=== PATIENT | female | born 1970 | race Caucasian/White ===

== ENCOUNTER 2017-01-18 05:30 | Inpatient (IN) | payer MEDICAID ==
[2017-01-18] MEDS ORDERED: Acetaminophen 500 MG Tab PO ONE (06:00)
[2017-01-18] MEDS ORDERED: Ropivacaine 60 ML, Dexamethasone 8 MG, EPINEPHrine 0.4 MG, Sodium Chloride 0.9% 17.6 ML NERVRT SCH ×4 (06:00)
[2017-01-18] MEDS ORDERED: cefOXitin 2 GM in Sodium Chloride 0.9% 50 ML IV ONE (06:00)
[2017-01-18] MEDS ORDERED: Celecoxib 200 MG Cap PO ONE (06:00)
[2017-01-18] MEDS ORDERED: Ketamine 500 MG/5 ML MDV IV SCH (06:00)
[2017-01-18] MEDS ORDERED: Pregabalin 50 MG Cap PO ONE (06:00)
[2017-01-18] MEDS ORDERED: Scopolamine 1.5 MG Transdermal Patch TOP SCH (06:00)
[2017-01-18] MEDS ORDERED: Lidocaine 2% 100 MG/5 ML Syringe IVPUSH ONE (06:00)
[2017-01-18] MEDS ORDERED: Dextrose 5%-Lactated Ringers 1,000 ML IV SCH ×2 (06:00→12:30)
[2017-01-18] MEDS ORDERED: cefOXitin 2 GM Vial ONE (06:49)
[2017-01-18] MEDS ORDERED: Dexamethasone 4 MG/ML SDV ONE (07:13)
[2017-01-18] MEDS ORDERED: Lactated Ringers 1,000 ML ONE ×3 (07:13→09:08)
[2017-01-18] MEDS ORDERED: Neostigmine Methylsulfate 1 MG/ML 5 ML Syringe ONE (07:13)
[2017-01-18] MEDS ORDERED: Rocuronium 50 MG/5 ML Vial ONE (07:13)
[2017-01-18] MEDS ORDERED: Ondansetron 4 MG/2 ML SDV ONE (07:13)
[2017-01-18] MEDS ORDERED: Succinylcholine/Normal Saline 200 MG/10 ML Syringe ONE (07:13)
[2017-01-18] MEDS ORDERED: Propofol 200 MG/20 ML SDV ONE (07:13)
[2017-01-18] MEDS ORDERED: Midazolam 1 MG/ML 2 ML SDV ONE (07:14)
[2017-01-18] MEDS ORDERED: fentaNYL 250 MCG/5 ML SDV ONE (07:14)
[2017-01-18] MEDS ORDERED: HYDROmorphone 1 MG/ML Syringe IVPUSH ONE (09:42)
[2017-01-18] MEDS ORDERED: hydrOXYzine HCl 50 MG/ML SDV IM ONE (10:06)
[2017-01-18] MEDS: Lidocaine 0.4%/D5W 2 GM/500 ML BAG IV SCH ×2 (11:14→23:23)
[2017-01-18] MEDS ORDERED: Pantoprazole 40 MG Vial IVPUSH SCH (12:00)
[2017-01-18] MEDS ORDERED: SCOPOLAMINE PATCH ASK TOP SCH (12:20)
[2017-01-18] MEDS ORDERED: hydrOXYzine HCl 50 MG/ML SDV IM PRN (12:20)
[2017-01-18] MEDS ORDERED: Labetalol 20 MG/4 ML Syringe IVPUSH PRN (12:20)
[2017-01-18] MEDS ORDERED: Ondansetron 4 MG/2 ML SDV IVPUSH PRN (12:20)
[2017-01-18] MEDS ORDERED: Metoclopramide 10 MG/2 ML SDV IVPUSH PRN (12:26)
[2017-01-18] MEDS ORDERED: diphenhydrAMINE 50 MG/ML SDV IVPUSH PRN (12:27)
[2017-01-18] MEDS: HYDROmorphone 1 MG/ML Syringe IVPUSH PRN ×2 (12:58→19:24)
[2017-01-18] MEDS: cefOXitin 2 GM in Sodium Chloride 0.9% 50 ML IV SCH ×2 (13:04→18:16)
[2017-01-18] MEDS: Acetaminophen Soln 650 MG/20.3 ML UD Cup PO SCH ×3 (13:04→23:25)
[2017-01-18] MEDS: Gabapentin 250 MG/5 ML Solution ML 470 ML Bottle PO SCH ×2 (14:00→20:42)
[2017-01-18] MEDS ORDERED: MVI, Adult with Vitamin K 10 ML, Thiamine 200 MG, Chromium/Copper/Mang/Selen/Zn 1 ML in... IV SCH ×4 (16:00)
[2017-01-18] MEDS: Heparin Sodium 5,000 Units/ML Vial SUBCUT SCH ×2 (16:59→23:26)
[2017-01-19] MEDS ORDERED: Ondansetron 4 MG Tab.DIS PO PRN (00:08)
[2017-01-19] MEDS: traMADol 50 MG Tab PO PRN ×3 (00:18→16:57)
[2017-01-19] MEDS: cefOXitin 2 GM in Sodium Chloride 0.9% 50 ML IV SCH ×2 (01:15→07:44)
[2017-01-19] MEDS: Acetaminophen Soln 650 MG/20.3 ML UD Cup PO SCH ×4 (05:21→23:48)
[2017-01-19] MEDS: Celecoxib 200 MG Cap PO SCH (08:56)
[2017-01-19] MEDS: Pregabalin 50 MG Cap PO SCH ×2 (08:56→20:59)
[2017-01-19] MEDS: Chlorthalidone 25 MG Tab PO SCH (08:56)
[2017-01-19] MEDS: Heparin Sodium 5,000 Units/ML Vial SUBCUT SCH ×3 (08:56→23:48)
[2017-01-19] MEDS: SCOPOLAMINE PATCH CHECK TOP SCH (08:57)
[2017-01-19] MEDS: VERIFY SCOP PATCH TOP SCH (08:57)
[2017-01-19] MEDS ORDERED: Topiramate 100 MG Tab PO SCH (09:00)
[2017-01-19] MEDS ORDERED: Levothyroxine 25 MCG Tab PO SCH (09:00)
[2017-01-19] MEDS: ZONISAMIDE 100 MG PO SCH ×2 (11:33→20:52)
[2017-01-19] MEDS: Topiramate 25 MG Tab PO SCH (11:34)
[2017-01-19] MEDS: DULoxetine 30 MG Cap PO SCH (11:34)
[2017-01-19] MEDS: Levothyroxine 75 MCG Tab PO SCH (11:34)
[2017-01-19] MEDS ORDERED: Topiramate 25 MG Tab PO SCH (21:00)
[2017-01-19] MEDS ORDERED: DULoxetine 30 MG Cap PO SCH (21:00)
[2017-01-20] MEDS: Acetaminophen Soln 650 MG/20.3 ML UD Cup PO SCH (05:38)
[2017-01-20 07:08] VITALS: BP 150/83
[2017-01-20] MEDS: traMADol 50 MG Tab PO PRN (07:17)
[2017-01-20] MEDS: Levothyroxine 75 MCG Tab PO SCH (07:18)
[2017-01-20] MEDS ORDERED: Cyanocobalamin (Vitamin B12) 1,000 MCG/ML SDV IM ONE (09:00)
[2017-01-20] MEDS: Heparin Sodium 5,000 Units/ML Vial SUBCUT SCH (10:29)
[2017-01-20] MEDS: Celecoxib 200 MG Cap PO SCH (10:30)
[2017-01-20] MEDS: DULoxetine 30 MG Cap PO SCH (10:30)
[2017-01-20] MEDS: Chlorthalidone 25 MG Tab PO SCH (10:30)
[2017-01-20] MEDS: SCOPOLAMINE PATCH CHECK TOP SCH (10:30)
[2017-01-20] MEDS: ZONISAMIDE 100 MG PO SCH (10:31)
[2017-01-20] MEDS: VERIFY SCOP PATCH TOP SCH (10:31)
[2017-01-20] MEDS: Topiramate 25 MG Tab PO SCH (10:31)
[2017-01-20] MEDS ORDERED: Magnesium Hydroxide 400 MG/5 ML Susp 30 ML Cup PO ONE (10:40)
[2017-01-20] MEDS: Pregabalin 50 MG Cap PO SCH (10:48)
--- NOTE | 2017-01-20 16:17 | PN ---
DATE OF SERVICE: 01/19/2017 The patient is postop day 1 from a laparoscopic gastric bypass along with repair of diaphragmatic hernia. Clinically, she has done well overnight and tolerating liquids. We will switch her over to oral pain medication and switch over to her usual oral medications today. Go up to a step-2 diet and maximize activity. Work with pulmonary toilet. Gordon Lucia MD /[id number]
--- NOTE | 2017-01-21 09:29 | CR ---
UGI wo KUB HISTORY: Gastric bypass COMPARISON: None FINDINGS: No obstruction or extravasation of contrast. Surgical drain adjacent to the gastric remnan t. No acute findings.
--- NOTE | 2017-01-21 14:35 | DISCH ---
FINAL DIAGNOSES: 1. Morbid obesity. 2. Marked hepatomegaly. 3. Paraesophageal diaphragmatic hernia. 4. Obstructive sleep apnea. 5. Chronic pain syndrome. 6. Treated hypothyroidism. 7. Hypertension. 8. Depression and anxiety. OPERATIVE PROCEDURE: This was done on 01/18/17 via laparoscopic Anthony-en-Y gastric bypass with long limb gastroenterostomy, Raj-Cut needle liver biopsy, and repair of paraesophageal diaphragmatic hernia. HOSPITAL COURSE: This is a 46-year-old female presenting with longstanding morbid obesity. After preoperative evaluation and discussion, she wished to proceed with a gastric bypass. This was done on the date of admission. The patient had a liver biopsy as well and repair of paraesophageal diaphragmatic hernia. Our intention was to remove the gallbladder as well, but that appeared to be quite unsafe at this juncture, as the degree of hepatomegaly more or less engulfed the area of the gallbladder neck, making visualization of the area around the gallbladder neck/cystic duct junction very difficult to visualize, and it was felt better to leave the gallbladder in place, knowing that we could take it out in 6 months or 12 months, and at that time, the liver would be much smaller and the procedure, at that point, much safer. Postoperatively, otherwise, the patient has done well. She will be discharged to home, taking only Tylenol and Celebrex, and will be on a liquid diet until the first appointment, which will be with Mely Moore on 01/28/17.
--- NOTE | 2017-01-23 09:34 | OR ---
DATE OF PROCEDURE: 01/18/2017 PREOPERATIVE DIAGNOSES: 1. Morbid obesity. 2. Chronic cholecystitis and cholelithiasis. POSTOPERATIVE DIAGNOSES: 1. Morbid obesity. 2. Marked hepatomegaly. 3. Paraesophageal diaphragmatic hernia. 4. Chronic cholecystitis and cholelithiasis with encasement of the gallbladder neck and cystohepatic triangle by the enlarged liver. OPERATIVE PROCEDURES: Diagnostic laparoscopy with: 1. Laparoscopic Anthony-en-Y gastric bypass with long limb gastroenterostomy (56666). 2. Raj-Cut needle liver biopsy (14240). 3. Repair of paraesophageal diaphragmatic hernia (20187). ANESTHESIA: General. GENERAL EDUCATION INSTRUCTOR: Mely Moore PA-C. INDICATION FOR PROCEDURE: This is a 46-year-old presenting with longstanding morbid obesity and increasingly significant comorbidities. After preoperative evaluation and discussion, she wished to proceed with a gastric bypass procedure. Potential risks including bleeding, infection, leaks from various GI tract closures, problems with bowel obstruction over time, as well as possibility of cardiopulmonary, septic, or hemorrhagic complications leading to were discussed, and the patient wishes to proceed. The patient initially had some gallstones seen on imaging and has some attacks occasionally of suggestive of biliary colic, and a cholecystectomy would be planned as well. Potential risks including bleeding, infection, injury to common bile duct, possible migration of stones into the common bile duct requiring additional procedures for correction were reviewed, and the patient wishes to proceed. She was also made aware that occasionally the liver, in these cases, is such that this becomes a high risk procedure, and depending on the appearance of gallbladder, may lead us to leave the gallbladder in place today and re- approach this issue after she has lost some weight with the liver then decreasing in size by that time. DETAILS OF PROCEDURE: The patient was taken to the operating room and placed in a supine position. After general endotracheal anesthesia was induced, she was converted to a lithotomy position, and the abdomen was prepped and draped. Bilateral transversus abdominis plane blocks were then placed, using 40 mL of saline containing ropivacaine, dexamethasone, and epinephrine. These subcostal blocks were placed under continuous ultrasound monitoring, and adequate disbursement of the fluid was seen by ultrasound in the transversus abdominis plane. At this point, the gastrointestinal balloon catheter was then placed, and the abdomen prepped and draped. At 15 cm inferior and 5 cm left of xiphoid process, transverse incision was made and the peritoneal cavity entered under direct vision with an Optiview trocar and inflated to 15 mmHg pressure with CO2. Laparoscope was then reinserted. No underlying trocar insertion site injuries were seen. Following this, 5 additional trocars were placed across the upper and mid abdomen, and general exploration was undertaken. The patient was noted to have a quite striking hepatomegaly. There were multiple bile duct hamartomas present, but these were not felt necessary to be biopsied. Raj-Cut needle liver biopsy was obtained to establish the condition of the left lobe of liver, and minimal bleeding from the biopsy site was controlled with electrocautery. At this point, the omentum was divided in the midline up to the level of the transverse colon. This allowed identification of the small bowel to the ligament of Treitz. Small bowel was then traced out 200 cm distal to that point, which was divided transversely with PHILIPPE stapler. Small bowel was then traced out an additional 200 cm, where the [id number] enteroenterostomy was accomplished with internal firing of the Endo-PHILIPPE 60 mm stapler. The common opening was then closed transversely with the same stapler, angles anastomosed, and the mesenteric defect approximated with some 0 Ethibond stitch, along with fibrin sealant. The divided end of Anthony limb was then from the mesentery for a few centimeters, which allowed an antecolic position of the Anthony limb up to the level of the gastroesophageal junction without tension. The liver was then retracted anteriorly. The patient was noted to have significant paraesophageal hernia. This was reduced, and photodocumentation had been obtained. The peritoneum to the right and then anterior and then to the left of the diaphragmatic hernia was then dissected free and a retroesophageal window constructed. A combined posterior and anterior repair of the diaphragmatic hernia was accomplished with 0 Ethibond sutures reinforced with PTFE pledgets. At this point, the gastrointestinal balloon catheter was then inflated to 15 mL and and pulled up snugly against the EG junction. Gastric wall over the apex balloon was then marked with electrocautery and balloon catheter deflated and pulled up into the esophagus. The lesser omental tissue adjacent to the gastric cardia was then opened, and this allowed initial formation of the gastric pouch with transverse firing of the PHILIPPE stapler at the level of the cauterized parviz in the gastric cardia. Two additional firings of the PHILIPPE stapler up to and through the angle of His were then accomplished. At that point, both staple lines appeared to be intact. The anvil of a 21 mm EEA stapler was attached to [place] sump type tube. The latter was brought down through the mouth and taken out through a small opening in the gastric pouch, allowing the anvil likewise to be pulled down to within the gastric pouch. The divided end of Anthony limb was then opened with main body of the EEA stapler and passed several centimeters in the lumen of small bowel, brought up the anvil and united with it, thus creating the gastrojejunostomy. Upon removal of stapler, double donuts of mucosa were noted within it. The gastrojejunostomy was reinforced with 3-0 Vicryl seromuscular stitch, along with fibrin sealant. A leak test was then accomplished with injection of 120 mL of air in the gastric pouch, while submerged with cefoxitin-containing saline solution. No leaks were identified. Attention was then taken to the cholecystectomy. The original epigastric trocar was redirected to the right of the falciform ligament, and one additional 5 mm trocar placed in the right upper quadrant. As one attempted to visualize the gallbladder, it became evident that this gallbladder was only mildly diseased at this point, and the gallbladder neck and cystohepatic triangle were very difficult to visualize, due to engulfment or encasement by the enlarged liver. A judgment at this point was made to leave the gallbladder in at this point and readdress this at a later time, when the liver has decreased in size, making the cholecystectomy, if necessary at that point, a safer undertaking. A Stephen-Franz drain was then placed adjacent to gastrojejunostomy. The remaining trocars were then removed and peritoneal cavity deflated. The incisions were closed with some 5-0 Vicryl skin stitch and drain stitched with some 4-0 Vicryl stitch. The patient was taken to the recovery room in satisfactory condition. There were no evident complications. Physician topographical field assistant, Mely Moore, played an essential role in assisting in this case, helping to position the patient, and retract structures as needed, as well as suturing and cutting sutures when indicated. Her presence improved patient safety and decreased the operative time. Gordon Lucia MD /[id number]
== END 2017-01-20 11:00 | disposition home or self-care (01) | DRG 620 ==
LOC: JP.SDS 05:30 → JP.MS 05:30 → EDSTATUS 08:15 → JP.2SS 10:45
PROVIDERS: ADMIT Surgery; ATTEND Surgery
PROC: 0BQS4ZZ (ICD-10-PCS; principal; 2017-01-18)
PROC: 0FB24ZX Excision of Left Lobe Liver, Percutaneous Endoscopic Approach, Diagnostic (ICD-10-PCS; principal; 2017-01-18)
PROC: 3E0T3BZ Introduction of Anesthetic Agent into Peripheral Nerves and Plexi, Percutaneous Approach (ICD-10-PCS; principal; 2017-01-18)
PROC: 0BQR4ZZ (ICD-10-PCS; principal; 2017-01-18)
PROC: 0D164ZA Bypass Stomach to Jejunum, Percutaneous Endoscopic Approach (ICD-10-PCS; principal; 2017-01-18)
DX: E66.01 Morbid (severe) obesity due to excess calories (principal); K80.10 Calculus of gallbladder with chronic cholecystitis without obstruction; Z68.45 Body mass index [BMI] 70 or greater, adult; K44.9 Diaphragmatic hernia without obstruction or gangrene; R16.0 Hepatomegaly, not elsewhere classified; G47.33 Obstructive sleep apnea (adult) (pediatric); F32.9 Major depressive disorder, single episode, unspecified; E03.9 Hypothyroidism, unspecified; G89.4 Chronic pain syndrome; I10 Essential (primary) hypertension; F41.1 Generalized anxiety disorder; M79.7 Fibromyalgia; E78.5 Hyperlipidemia, unspecified; K21.9 Gastro-esophageal reflux disease without esophagitis; E55.9 Vitamin D deficiency, unspecified; M19.90 Unspecified osteoarthritis, unspecified site; R51 Headache; Z87.891 Personal history of nicotine dependence; Z91.048 Other nonmedicinal substance allergy status; Z53.09 Procedure and treatment not carried out because of other contraindication; K82.8 Other specified diseases of gallbladder
CPT/HCPCS: 36415; 74240; 74240-26; 82962; 86850; 86900; 86901; 88307; 88313; A9270-GY; C9113; J0171; J0694; J1100; J1170; J1644; J2001; J2250; J2405; J2704; J2795; J3010; J3410; J3411; J3420; J7030; J7040; J7042; J7050; J7120

== ENCOUNTER 2017-04-12 07:57 | Day surgery (SDC) | payer MEDICAID ==
[2017-04-12] MEDS ORDERED: Lactated Ringers 1,000 ML IV SCH (08:30)
[2017-04-12] MEDS ORDERED: Cyanocobalamin (Vitamin B12) 1,000 MCG/ML SDV IM ONE (09:00)
[2017-04-12] MEDS ORDERED: Glycopyrrolate 0.2 MG/ML 2 ML SYRINGE IVPUSH ONE (09:00)
[2017-04-12] MEDS ORDERED: MVI, Adult with Vitamin K 10 ML, Thiamine 200 MG, Chromium/Copper/Mang/Selen/Zn 1 ML in... IV ONE ×4 (10:30)
[2017-04-12] MEDS ORDERED: Midazolam 1 MG/ML 2 ML SDV ONE (14:47)
[2017-04-12] MEDS ORDERED: fentaNYL 100 MCG/2 ML SDV ONE (14:47)
[2017-04-12] MEDS ORDERED: Propofol 200 MG/20 ML SDV ONE (14:47)
[2017-04-12] MEDS ORDERED: Ondansetron 4 MG/2 ML SDV ONE (15:09)
[2017-04-12] MEDS ORDERED: Ondansetron 4 MG/2 ML SDV IVPUSH ONE ×2 (15:11→15:15)
[2017-04-12] MEDS ORDERED: Lactated Ringers 1,000 ML ONE (15:28)
[2017-04-12 15:56] VITALS: BP 147/87
--- NOTE | 2017-04-17 12:47 | OR ---
DATE OF PROCEDURE: 04/12/2017 PREOPERATIVE DIAGNOSIS: Probable stricture of gastrojejunostomy. POSTOPERATIVE DIAGNOSIS: Mild stricture of gastrojejunostomy. OPERATIVE PROCEDURE: Upper GI endoscopy with dilation gastrojejunostomy (01235). ANESTHESIA: IV sedation. INDICATION FOR PROCEDURE: The patient is status post Anthony-en-Y gastric bypass on January 18, 2017. She presents now with symptoms suggestive of stricturing at her gastrojejunostomy. Plan is to proceed with upper GI endoscopy with dilation as indicated. Potential risks including bleeding and perforation were discussed, and the patient wishes to proceed. DETAILS OF PROCEDURE: The patient was taken to the operating room and placed in a left lateral decubitus position. IV sedation was administered, after which the upper GI endoscope was passed orally through the length of the esophagus and into the gastric pouch. The patient noted to have a mild stricture noted. A 9 mm scope could be placed through the anastomosis. There was no ulceration or significant inflammation present and the visualized portion of the Anthony-en-Y was unremarkable. Two large somewhat 45-Yoruba balloon catheters inflated over the anastomosis and now held in position for 1 minute. The balloon catheter was deflated and withdrawn. The anastomosis was examined. Significant dilation had occurred and there was no evident of complications. The scope was withdrawn. The procedure was concluded. The patient was taken to the recovery room in satisfactory condition. Gordon Lucia MD /[id number]
== END 2017-04-12 16:01 | disposition home or self-care (01) ==
LOC: JP.SDS 07:57
PROVIDERS: ATTEND Surgery
DX: K95.89 Other complications of other bariatric procedure (principal); I10 Essential (primary) hypertension; K21.9 Gastro-esophageal reflux disease without esophagitis; F32.9 Major depressive disorder, single episode, unspecified; E66.9 Obesity, unspecified; E03.9 Hypothyroidism, unspecified
CPT/HCPCS: 43245; J2250; J2405; J2704; J3010; J3411; J3420; J7120

== ENCOUNTER 2017-05-23 12:26 | Inpatient (IN) | payer MEDICAID ==
--- NOTE | 2017-05-23 14:33 | EDM.PDOC ---
ED HPI GENERAL MEDICAL PROBLEM - General Chief Complaint: Abdominal Pain Stated Complaint: RNY SURGERY 01/18 STOMACH PAIN Time Seen by Provider: 05/23/17 13:00 Source of Information: Reports: Patient, Family History Limitations: Reports: No Limitations - History of Present Illness INITIAL COMMENTS - FREE TEXT/NARRATIVE: 46-year-old female with recurring right upper quadrant abdominal pain and known "gallbladder problems" has been having problems over the last couple days and was told by the surgical department to come and have her gallbladder checked. She had gastric bypass surgery earlier this year and they were unable to perform her cholecystectomy at that time because of concurrent surgical issues. She has no fever or chills, no persistent nausea or vomiting, mostly just right upper quadrant pain and epigastric pain radiating to the right flank. Onset: Gradual (Off-and-on over the past several weeks worse the last 24-48 hours) Location: Reports: Abdomen Severity: Moderate Worsens with: Reports: Other (Seems to be somewhat worse after eating) Associated Symptoms: Denies: Fever/Chills Abdominal Pain Score (Numeric/FACES): 8 - Related Data Allergies Allergy/AdvReac Type Severity Reaction Status Date / Time No Known Allergies Allergy Verified 01/18/17 06:16 Home Meds: Home Meds Chlorthalidone 50 mg PO DAILY 01/17/17 [History] Cholecalciferol (Vitamin D3) [Vitamin D3] 2,000 units PO DAILY 01/17/17 [History ] Levothyroxine Sodium [Synthroid] 75 mcg PO DAILY 01/17/17 [History] Loperamide [Imodium] 2 mg PO QID PRN 01/17/17 [History] Multivit with Min #53/FA/K/Q10 [Dekas Plus Softgel] 1 tab PO DAILY 01/17/17 [ History] Omeprazole Magnesium [Prilosec] 20 mg PO DAILY PRN 01/17/17 [History] Ondansetron [Zofran ODT] 8 mg PO TIDAC PRN 01/17/17 [History] Pregabalin [Lyrica] 50 mg PO BID 01/17/17 [History] Topiramate [Topamax] 50 mg PO DAILY 01/17/17 [History] Zonisamide [Zonegran] 100 mg PO BID 01/17/17 [History] buPROPion [Wellbutrin XL] 150 mg PO DAILY 01/17/17 [History] DULoxetine HCl [Cymbalta] 30 mg PO BEDTIME 01/19/17 [History] DULoxetine HCl [Cymbalta] 60 mg PO DAILY 01/19/17 [History] Topiramate 75 mg PO BEDTIME 01/19/17 [History] Past Medical History HEENT History: Reports: Impaired Vision Cardiovascular History: Reports: Hypertension Respiratory History: Reports: Sleep Apnea Other Respiratory History: has not been using any cpap post op Gastrointestinal History: Reports: Cholelithiasis, Chronic Constipation, Chronic Diarrhea, Colon Polyp, GERD, Irritable Bowel Syndrome Genitourinary History: Reports: None BACKGROUND INVESTIGATOR History: Reports: Dysfunctional Uterine Bleeding, Musculoskeletal History: Reports: Arthritis, Fibromyalgia, Osteoarthritis Neurological History: Reports: Headaches, Chronic, Migraines Psychiatric History: Reports: Anxiety, Depression, OCD, Panic Attack, PTSD Endocrine/Metabolic History: Reports: Hypothyroidism, Obesity/BMI 30+ Hematologic History: Reports: B12 Deficiency - Infectious Disease History Infectious Disease History: Reports: Chicken Pox, Shingles - Past Surgical History Cardiovascular Surgical History: Reports: None GI Surgical History: Reports: Bariatric Procedure, Colon, EGD, Polypectomy Female Surgical History: Reports: Section, Hysterectomy Endocrine Surgical History: Reports: None Musculoskeletal Surgical History: Reports: Carpal Tunnel Social & Family History - Family History Family Medical History: Noncontributory - Tobacco Use Smoking Status *Q: Never Smoker Years of Tobacco use: 30 Packs/Tins Daily: 1 Used Tobacco, but Quit: Yes Month Tobacco Last Used: September Second Hand Smoke Exposure: No - Caffeine Use Caffeine Use: Reports: None - Recreational Drug Use Recreational Drug Use: No ED ROS GENERAL - Review of Systems Review Of Systems: See Below Constitutional: Denies: Fever, Chills HEENT: Reports: No Symptoms Respiratory: Denies: Shortness of Breath, Cough Cardiovascular: Denies: Chest Pain Endocrine: Denies: Fatigue GI/Abdominal: Reports: Abdominal Pain, Nausea. Denies: Diarrhea, Vomiting : Reports: No Symptoms Skin: Reports: No Symptoms Neurological: Reports: No Symptoms ED EXAM, GI/ABD - Physical Exam Exam: See Below Exam Limited By: No Limitations General Appearance: Alert, No Apparent Distress Eyes: Bilateral: Normal Appearance (No jaundice) Respiratory/Chest: No Respiratory Distress, Lungs Clear Cardiovascular: Regular Rate, Rhythm GI/Abdominal Exam: Soft, Tender (Tender with guarding along the upper right abdomen and epigastric area, no rebound tenderness) Course - Vital Signs Last Recorded V/S: Last Vital Signs Temp 97.5 F 05/24/17 04:00 Pulse 75 05/24/17 04:00 Resp 18 05/24/17 04:00 BP 124/68 05/24/17 04:00 Pulse Ox 94 L 05/24/17 04:00 - Orders/Labs/Meds Orders: Active Orders 24 hr Category Date Time Status Abdomen Ltd [US] Stat Exams 05/23/17 14:27 Taken Abdomen Pelvis wo Cont [CT] Stat Exams 05/23/17 15:47 Taken Medication Orders Acetaminophen (Tylenol) 650 mg PO Q4H PRN PRN Reason: Pain (Mild 1-3)/fever Bupropion HCl (Wellbutrin Xl) 150 mg PO DAILY [facility] Chlorthalidone (Chlorthalidone) 50 mg PO DAILY [facility] Duloxetine HCl (Cymbalta) 30 mg PO BEDTIME [facility] Last Admin: 05/23/17 21:18 Dose: 30 mg Duloxetine HCl (Cymbalta) 60 mg PO DAILY [facility] Hydromorphone HCl (Dilaudid) 0.5 - 1 mg IVPUSH Q2H PRN PRN Reason: Pain (severe 7-10) Last Admin: 05/24/17 01:10 Dose: 1 mg Admin: 05/23/17 20:16 Dose: 1 mg Dextrose/Lactated Ringer's (Dextrose 5%-Lactated Ringers) 1,000 mls @ 125 mls/ hr IV ASDIRECTED [facility] Last Admin: 05/23/17 23:26 Dose: 125 mls/hr Levothyroxine Sodium (Levothyroxine) 75 mcg PO DAILY [facility] Ondansetron HCl (Zofran Odt) 4 mg PO Q6H PRN PRN Reason: Nausea able to take PO Ondansetron HCl (Zofran) 4 mg IV Q6H PRN PRN Reason: Nausea/Vomiting Pantoprazole Sodium (Protonix Iv) 40 mg IV Q24H [facility] Last Admin: 05/23/17 20:16 Dose: 40 mg Polyethylene Glycol (Miralax) 17 gm PO DAILY PRN PRN Reason: Constipation Pregabalin (Lyrica) 50 mg PO BID [facility] Last Admin: 05/23/17 21:18 Dose: 50 mg Senna/Docusate Sodium (Senna Plus) 1 tab PO BID PRN PRN Reason: Constipation Topiramate (Topamax) 50 mg PO DAILY [facility] Topiramate (Topamax) 75 mg PO BEDTIME [facility] Last Admin: 05/23/17 21:19 Dose: 75 mg Zonisamide (Zonisamide) 100 mg PO BID [facility] Last Admin: 05/23/17 21:19 Dose: Not Given Labs: Laboratory Tests 05/23/17 05/23/17 Range/Units 14:05 14:05 WBC 9.4 (4.5-11.0) K/uL RBC 4.62 (3.30-5.50) M/uL Hgb 13.7 (12.0-15.0) g/dL Hct 41.3 (36.0-48.0) % MCV 89 (80-98) fL MCH 30 (27-31) pg MCHC 33 (32-36) % Plt Count 184 (150-400) K/uL Neut % (Auto) 60 (36-66) % Lymph % (Auto) 28 (24-44) % [place] % (Auto) 11 H (2-6) % Eos % (Auto) 2 (2-4) % Baso % (Auto) 1 (0-1) % Sodium 142 (140-148) mmol/L Potassium 4.0 (3.6-5.2) mmol/L Chloride 106 (100-108) mmol/L Carbon Dioxide 26 (21-32) mmol/L Anion Gap 10.1 (5.0-14.0) mmol/L BUN 7 (7-18) mg/dL Creatinine 0.7 (0.6-1.0) mg/dL Est Cr Clr Drug Dosing 75.78 mL/min Estimated GFR (MDRD) > 60 (>60) Glucose 83 (74-106) mg/dL Calcium 8.9 (8.5-10.1) mg/dL Total Bilirubin 0.7 (0.2-1.0) mg/dL AST 19 (15-37) U/L ALT 19 (12-78) U/L Alkaline Phosphatase 101 (46-116) U/L Total Protein 6.8 (6.4-8.2) g/dL Albumin 2.8 L (3.4-5.0) g/dL Globulin 4.0 H (2.3-3.5) g/dL Albumin/Globulin Ratio 0.7 L (1.2-2.2) Amylase 31 (25-115) U/L Lipase 484 H (73-393) U/L Meds: Medications Generic Name Dose Route Start Last Admin Trade Name Freq PRN Reason Stop Dose Admin Acetaminophen 650 mg 05/23/17 18:31 Tylenol PO Q4H PRN Pain (Mild 1-3)/fever Bupropion HCl 150 mg 05/24/17 09:00 Wellbutrin Xl PO DAILY [facility] Chlorthalidone 50 mg 05/24/17 09:00 Chlorthalidone PO DAILY [facility] Duloxetine HCl 30 mg 05/23/17 21:00 05/23/17 21:18 Cymbalta PO 30 mg BEDTIME [facility] Administration Duloxetine HCl 60 mg 05/24/17 09:00 Cymbalta PO DAILY [facility] Hydromorphone HCl 0.5 - 1 mg 05/23/17 18:31 05/24/17 01:10 Dilaudid IVPUSH 1 mg Q2H PRN Administration Pain (severe 7-10) Dextrose/Lactated Ringer's 1,000 mls @ 125 mls/hr 05/23/17 23:30 05/23/17 23: 26 Dextrose 5%-Lactated Ringers IV 125 mls/hr ASDIRECTED [facility] Administration Levothyroxine Sodium 75 mcg 05/24/17 09:00 Levothyroxine PO DAILY [facility] Ondansetron HCl 4 mg 05/23/17 18:31 Zofran Odt PO Q6H PRN Nausea able to take PO Ondansetron HCl 4 mg 05/23/17 18:31 Zofran IV Q6H PRN Nausea/Vomiting Pantoprazole Sodium 40 mg 05/23/17 19:00 05/23/17 20:16 Protonix Iv IV 40 mg Q24H [facility]O Administration Polyethylene Glycol 17 gm 05/23/17 18:31 Miralax PO DAILY PRN Constipation Pregabalin 50 mg 05/23/17 21:00 05/23/17 21:18 Lyrica PO 50 mg BID [facility]O Administration Senna/Docusate Sodium 1 tab 05/23/17 18:31 Senna Plus PO BID PRN Constipation Topiramate 50 mg 05/24/17 09:00 Topamax PO DAILY [facility] Topiramate 75 mg 05/23/17 21:00 05/23/17 21:19 Topamax PO 75 mg BEDTIME [facility] Administration Zonisamide 100 mg 05/23/17 21:00 05/23/17 21:19 Zonisamide PO Not Given BID RAO Discontinued Medications Generic Name Dose Route Start Last Admin Trade Name [place] PRN Reason Stop Dose Admin Sodium Chloride 89 mls @ 3 mls/sec 05/23/17 15:30 Normal Saline IV ASDIRECTED [facility] Multivitamins/Minerals 10 ml/ 1,013 mls @ 200 mls/hr 05/23/17 18:00 05/23/17 17:50 Chromium/Copper/Manganese/ IV 05/23/17 23:03 200 mls/hr Seleni/Zn 1 ml/ Thiamine HCl ONETIME ONE Administration 200 mg/ Dextrose/Lactated Ringer's Iopamidol 150 ml 05/23/17 15:29 Isovue-300 (61%) IV 05/24/17 15:30 . DIRECTED PRN RADIOLOGY EXAM Sodium Chloride 10 ml 05/23/17 15:29 05/23/17 17:30 Saline Flush FLUSH 05/23/17 15:30 10 ml ONETIME ONE Administration - Re-Assessments/Exams Free Text/Narrative Re-Assessment/Exam: 05/23/17 14:35 CBC, CMP, amylase and lipase were obtained. A right upper quadrant gallbladder ultrasound was obtained. 05/23/17 16:59 lipase is mildly elevated, white count was normal. Liver function studies were basically normal as well and the gallbladder ultrasound showed cholelithiasis with a borderline gallbladder size and borderline gallbladder wall thickness. CT scan confirmed pancreatitis around the head of the pancreas. This was discussed with Dr. Lucia, he asked the hospitalist service to admit her for treatment of acute pancreatitis and will likely get a cholecystectomy in the near future. Departure - Departure Time of Disposition: 18:22 Disposition: Admitted As Inpatient 66 Condition: Fair Clinical Impression: Abdominal pain Qualifiers: Abdominal location: upper abdomen, unspecified Qualified Code(s): R10.10 - Upper abdominal pain, unspecified Pancreatitis Qualifiers: Chronicity: acute Pancreatitis type: biliary Acute pancreatitis complication: no infection or necrosis Qualified Code(s): K85.10 - Biliary acute pancreatitis without necrosis or infection - Discharge Information - My Orders Last 24 Hours: My Active Orders 05/23/17 14:27 Abdomen Ltd [US] Stat 05/23/17 15:47 Abdomen Pelvis wo Cont [CT] Stat - Assessment/Plan Last 24 Hours: My Active Orders 05/23/17 14:27 Abdomen Ltd [US] Stat 05/23/17 15:47 Abdomen Pelvis wo Cont [CT] Stat
[2017-05-23] MEDS ORDERED: Sodium Chloride 0.9% 10 ML Syringe FLUSH ONE (15:29)
[2017-05-23] MEDS ORDERED: Iopamidol 612 MG/ML 150 ML Bottle IV PRN (15:29)
--- NOTE | 2017-05-23 17:37 | PCM.HP ---
H&P History of Present Illness - General Date of Service: 05/23/17 Admit Problem/Dx: Admission Diagnosis/Problem Admission Diagnosis/Problem Acute pancreatitis Source of Information: Patient, Provider History Limitations: Reports: No Limitations - History of Present Illness Initial Comments - Free Text/Narative: Dary presents to the emergency room today with epigastric abdominal pain that has been present for the past 24 hours. This is a sharp progressive pain that has gotten steadily worse. Moving around seems to make the pain worse and laying still makes the pain better. She has not taken anything for the pain. She has had very little to eat or drink in the past 24 hours. She has never had pain quite like this before. She thinks that she may have had a "gallbladder attack" in the past. No recent difficulties with fevers, chills, diarrhea or change in bladder habits. No complaints of shortness of breath. No sick contacts or vomiting but she has had some nausea. Laboratory workup in the emergency room was reassuring other than a mildly elevated lipase. A right upper quadrant ultrasound revealed order lying thickening of the gallbladder wall and cholelithiasis but no strong evidence for cholecystitis. CT scan of the abdomen and pelvis suggested acute pancreatitis with inflammation around the head of the pancreas. Abdominal Pain Score (Numeric/FACES): 8 - Related Data Allergies/Adverse Reactions: Allergies Allergy/AdvReac Type Severity Reaction Status Date / Time No Known Allergies Allergy Verified 01/18/17 06:16 Home Medications: Home Meds Chlorthalidone 50 mg PO DAILY 01/17/17 [History] Cholecalciferol (Vitamin D3) [Vitamin D3] 2,000 units PO DAILY 01/17/17 [History ] Levothyroxine Sodium [Synthroid] 75 mcg PO DAILY 01/17/17 [History] Loperamide [Imodium] 2 mg PO QID PRN 01/17/17 [History] Multivit with Min #53/FA/K/Q10 [Dekas Plus Softgel] 1 tab PO DAILY 01/17/17 [ History] Omeprazole Magnesium [Prilosec] 20 mg PO DAILY PRN 01/17/17 [History] Ondansetron [Zofran ODT] 8 mg PO TIDAC PRN 01/17/17 [History] Pregabalin [Lyrica] 50 mg PO BID 01/17/17 [History] Topiramate [Topamax] 50 mg PO DAILY 01/17/17 [History] Zonisamide [Zonegran] 100 mg PO BID 01/17/17 [History] buPROPion [Wellbutrin XL] 150 mg PO DAILY 01/17/17 [History] DULoxetine HCl [Cymbalta] 30 mg PO BEDTIME 01/19/17 [History] DULoxetine HCl [Cymbalta] 60 mg PO DAILY 01/19/17 [History] Topiramate 75 mg PO BEDTIME 01/19/17 [History] Past Medical History HEENT History: Reports: Impaired Vision Cardiovascular History: Reports: Hypertension Respiratory History: Reports: Sleep Apnea Other Respiratory History: has not been using any cpap post op Gastrointestinal History: Reports: Cholelithiasis, Chronic Constipation, Chronic Diarrhea, Colon Polyp, GERD, Irritable Bowel Syndrome Genitourinary History: Reports: None [employer] History: Reports: Dysfunctional Uterine Bleeding, Musculoskeletal History: Reports: Arthritis, Fibromyalgia, Osteoarthritis Neurological History: Reports: Headaches, Chronic, Migraines Psychiatric History: Reports: Anxiety, Depression, OCD, Panic Attack, PTSD Endocrine/Metabolic History: Reports: Hypothyroidism, Obesity/BMI 30+ Hematologic History: Reports: B12 Deficiency - Infectious Disease History Infectious Disease History: Reports: Chicken Pox, Shingles - Past Surgical History Cardiovascular Surgical History: Reports: None GI Surgical History: Reports: Bariatric Procedure, Colon, EGD, Polypectomy Female Surgical History: Reports: Section, Hysterectomy Endocrine Surgical History: Reports: None Musculoskeletal Surgical History: Reports: Carpal Tunnel Social & Family History - Family History Family Medical History: Noncontributory - Tobacco Use Smoking Status *Q: Never Smoker Years of Tobacco use: 30 Packs/Tins Daily: 1 Used Tobacco, but Quit: Yes Month Tobacco Last Used: September Second Hand Smoke Exposure: No - Caffeine Use Caffeine Use: Reports: None - Alcohol Use Alcohol Use History: No - Recreational Drug Use Recreational Drug Use: No H&P Review of Systems - Review of Systems: Review Of Systems: See Below Free Text/Narrative: A complete 12 point review of systems was obtained. Pertinent positives and negatives are noted in the history of present illness. All other systems were reviewed and were negative except as noted. Exam - Exam Exam: See Below - Vital Signs Vital Signs: Last Vital Signs Temp 37.4 C 05/23/17 13:21 Pulse 80 05/23/17 13:21 Resp 20 05/23/17 13:21 BP 129/80 05/23/17 13:21 Pulse Ox Weight: 136 kg - Exam Quality Assessment: No: Supplemental Oxygen General: Alert, Oriented, Cooperative. No: Mild Distress HEENT: Conjunctiva Clear. No: Mucosa Moist & Smyer (dry), Scleral Icterus Neck: Supple, Trachea Midline. No: Lymphadenopathy Lungs: Clear to Auscultation, Normal Respiratory Effort Cardiovascular: Regular Rate, Regular Rhythm. No: Systolic Murmur GI/Abdominal Exam: Soft, No Distention, Guarding, Tender (Mild diffuse tenderness and moderate epigastric tenderness). No: Abnormal Bowel Sounds ( Hypoactive) Extremities: Pedal Edema (Pitting bilateral edema of both ankles). No: Joint Swelling, Increased Warmth Peripheral Pulses: 2+: Dorsalis Pedis (L), Dorsalis Pedis (R) Skin: Warm, Dry. No: Rash Neuro Extensive - Mental Status: Alert, Oriented x3, Nl Response to Commands Neuro Extensive - Motor, Sensory, Reflexes: CN II-XII Intact. No: Dysarthria, Abnormal Motor, Tremor Psychiatric: Alert, Normal Affect - Patient Data Lab Results Last 24 hrs: Laboratory Results - last 24 hr 05/23/17 05/23/17 Range/Units 14:05 14:05 WBC 9.4 (4.5-11.0) K/uL RBC 4.62 (3.30-5.50) M/uL Hgb 13.7 (12.0-15.0) g/dL Hct 41.3 (36.0-48.0) % MCV 89 (80-98) fL MCH 30 (27-31) pg MCHC 33 (32-36) % Plt Count 184 (150-400) K/uL Neut % (Auto) 60 (36-66) % Lymph % (Auto) 28 (24-44) % [place] % (Auto) 11 H (2-6) % Eos % (Auto) 2 (2-4) % Baso % (Auto) 1 (0-1) % Sodium 142 (140-148) mmol/L Potassium 4.0 (3.6-5.2) mmol/L Chloride 106 (100-108) mmol/L Carbon Dioxide 26 (21-32) mmol/L Anion Gap 10.1 (5.0-14.0) mmol/L BUN 7 (7-18) mg/dL Creatinine 0.7 (0.6-1.0) mg/dL Est Cr Clr Drug Dosing 75.78 mL/min Estimated GFR (MDRD) > 60 (>60) Glucose 83 (74-106) mg/dL Calcium 8.9 (8.5-10.1) mg/dL Total Bilirubin 0.7 (0.2-1.0) mg/dL AST 19 (15-37) U/L ALT 19 (12-78) U/L Alkaline Phosphatase 101 (46-116) U/L Total Protein 6.8 (6.4-8.2) g/dL Albumin 2.8 L (3.4-5.0) g/dL Globulin 4.0 H (2.3-3.5) g/dL Albumin/Globulin Ratio 0.7 L (1.2-2.2) Amylase 31 (25-115) U/L Lipase 484 H (73-393) U/L Result Diagrams: 05/23/17 14:05 05/23/17 14:05 Imaging Impressions Last 24 hrs: Right upper quadrant ultrasound - cholelithiasis and borderline thickening of the gallbladder wall but no definite acute cholecystitis CT scan of the abdomen and pelvis - images personally reviewed - there is inflammation involving the head of the pancreas. No definite mass in the head of the pancreas. No impressive dilation of the biliary system. Cholelithiasis noted. No other acute findings. *Q Meaningful Use (ADM) - VTE *Q VTE Criteria *Q: VTE Pharmacological Contraindications *Q: Patient Scheduled Surgery (Possible cholecystectomy) - VTE Risk Assess *Q Each Risk Factor Represents 1 Point: Age 41 - 59 years, Minor Surgery Planned, Swollen Legs, Current Total Score 1 Point Risk Factors: 3 Each Risk Factor Represents 2 Points: None Total Score 2 Point Risk Factors: 0 Each Risk Factor Represents 3 Points: BMI Greater than 50 (Venous Stasis Syndrome) Total Score 3 Point Risk Factors: 3 Each Risk Factor Represents 5 Points: None Total Score 5 Point Risk Factors: 0 Venous Thromboembolism Risk Factor Score *Q: 6 - Stroke *Q Stroke Criteria *Q: - AMI *Q AMI Criteria *Q: - Problem List (1) Pancreatitis SNOMED Code(s): 39811007 ICD Code: K85.90 - ACUTE PANCREATITIS WITHOUT NECROSIS OR INFECTION, UNSP Status: Acute Current Visit: Yes Qualifiers: Chronicity: acute Pancreatitis type: biliary Acute pancreatitis complication: no infection or necrosis Qualified Code(s): K85.10 - Biliary acute pancreatitis without necrosis or infection (2) Cholelithiasis SNOMED Code(s): 882713195 ICD Code: K80.20 - CALCULUS OF GALLBLADDER W/O CHOLECYSTITIS W/O OBSTRUCTION Status: Acute Current Visit: Yes Qualifiers: Cholelithiasis location: gallbladder Cholecystitis presence: without cholecystitis Biliary obstruction: without biliary obstruction Qualified Code(s): K80.20 - Calculus of gallbladder without cholecystitis without obstruction (3) Morbid obesity with BMI of 50.0-59.9, adult SNOMED Code(s): 669488775 ICD Code: E66.01 - MORBID (SEVERE) OBESITY DUE TO EXCESS CALORIES; Z68.43 - BODY MASS INDEX (BMI) 50-59.9 , ADULT Status: Chronic Current Visit: Yes Problem List Initiated/Reviewed/Updated: Yes Orders Last 24hrs: Active Orders 24 hr Category Date Time Status Patient Status Manage Transfer [TRANSFER] Routine ADT 05/23/17 17:26 Ordered Abdomen Ltd [US] Stat Exams 05/23/17 14:27 Taken Abdomen Pelvis w Cont [CT] Stat Exams 05/23/17 15:16 Stop Req Abdomen Pelvis wo Cont [CT] Stat Exams 05/23/17 15:47 Taken Iopamidol [Isovue-300 (61%)] Med 05/23/17 15:29 Active 150 ml IV . DIRECTED PRN Sodium Chloride 0.9% [Normal Saline] 89 ml Med 05/23/17 15:30 Active IV ASDIRECTED Resuscitation Status Routine Resus Stat 05/23/17 17:29 Ordered Medication Orders Sodium Chloride (Normal Saline) 89 mls @ 3 mls/sec IV ASDIRECTED RAO Iopamidol (Isovue-300 (61%)) 150 ml IV . DIRECTED PRN PRN Reason: RADIOLOGY EXAM Stop: 05/24/17 15:30 Assessment/Plan Comment:: Assessment and plan - Acute pancreatitis - mild elevation of lipase but more impressive inflammation around the head of the pancreas on CT scan. Patient reports no alcohol use. She does have gallstones but labs are not consistent with cholelithiasis causing obstruction. Medications could be considered. No recent infections to suggest viral cause. -Nothing by mouth -IV fluids -Multivitamin bag -Pain control -Antinausea medications -Repeat lipase in the morning Cholelithiasis with possible cholecystitis - findings for cholecystitis are borderline at this time and not definitive. Presenting symptoms more consistent with pancreatitis. -Nothing by mouth -Labs in the morning -Surgical consultation Morbid obesity with BMI greater than 50 - history of Anthony-en-Y gastric bypass. -Multivitamin bag Fibromyalgia - symptoms are stable. -Continue home medications Maintenance issues - - DVT prophylaxis - mechanical - GI prophylaxis - IV PPI - Nutrition - nothing by mouth - Mckeon catheter - not indicated CODE STATUS - full code Admission justification - This patient will be admitted for inpatient services and is medically appropriate meeting medical necessity for inpatient admission as outlined in my documentation. I reasonably expect the patient will require inpatient services that span a period time over 2 midnights. I reasonably expect this patient to be discharged or transferred within 96 hours [facility] Disposition - anticipate discharge home after the hospital stay Primary care physician - Dr. Khari Rangel M.D.
[2017-05-23] MEDS ORDERED: MVI, Adult with Vitamin K 10 ML, Chromium/Copper/Mang/Selen/Zn 1 ML, Thiamine 200 MG in... IV ONE ×4 (18:00)
[2017-05-23] MEDS ORDERED: Ondansetron 4 MG/2 ML SDV IV PRN (18:31)
[2017-05-23] MEDS ORDERED: Polyethylene Glycol 3350 Powder 17 GM Packet PO PRN (18:31)
[2017-05-23] MEDS ORDERED: Ondansetron 4 MG Tab.DIS PO PRN (18:31)
[2017-05-23] MEDS ORDERED: Pantoprazole 40 MG Vial IV SCH (19:00)
[2017-05-23] MEDS: HYDROmorphone 0.5 MG/0.5 ML Syringe IVPUSH PRN (20:16)
[2017-05-23] MEDS: Pregabalin 50 MG Cap PO SCH (21:18)
[2017-05-23] MEDS: DULoxetine 30 MG Cap PO SCH (21:18)
[2017-05-23] MEDS: Zonisamide 50 MG Capsule PO SCH (21:19)
[2017-05-23] MEDS: Topiramate 25 MG Tab PO SCH (21:19)
[2017-05-23] MEDS ORDERED: Dextrose 5%-Lact Ringers w/KCl 1,000 ML IV SCH (23:15)
[2017-05-23] MEDS: Dextrose 5%-Lactated Ringers 1,000 ML IV SCH (23:26)
[2017-05-24] MEDS: HYDROmorphone 0.5 MG/0.5 ML Syringe IVPUSH PRN (01:10)
[2017-05-24] MEDS ORDERED: HYDROmorphone/Normal Saline 15 MG/30 ML PCA IV PRN (07:47)
[2017-05-24] MEDS ORDERED: Naloxone 0.4 MG/ML SDV IV PRN (07:47)
[2017-05-24] MEDS: Dextrose 5%-Lactated Ringers 1,000 ML IV SCH ×2 (08:10→23:32)
--- NOTE | 2017-05-24 08:51 | US ---
Abdomen Ltd HISTORY: Right upper quadrant pain. COMPARISON: None FINDINGS: Diffuse fatty infiltration of liver with no focal liver lesions seen. Gallbladder demonstra jun multiple small shadowing stones. Gallbladder wall measures 3 mm which is normal. Common bile duct measures 5 mm. Inferior vena cava is patent. Right kidney unremarkable. The visualized pancreas appe ars unremarkable. Impression: 1. Fatty infiltration of liver. 2. Cholelithiasis no sonographic evidence for cholecystitis.
[2017-05-24] MEDS ORDERED: Levothyroxine 75 MCG Tab PO SCH (09:00)
[2017-05-24] MEDS: Zonisamide 50 MG Capsule PO SCH ×2 (10:06→22:00)
[2017-05-24] MEDS: buPROPion 150 MG Tab.ER PO SCH (10:07)
[2017-05-24] MEDS: Topiramate 25 MG Tab PO SCH ×2 (10:07→21:56)
[2017-05-24] MEDS: Chlorthalidone 25 MG Tab PO SCH (10:07)
[2017-05-24] MEDS: DULoxetine 30 MG Cap PO SCH ×2 (10:07→21:55)
[2017-05-24] MEDS: Levothyroxine 75 MCG Tab PO SCH (10:07)
[2017-05-24] MEDS: Magnesium Sulfate/Water 2 GM in Premix Bag 1 BAG IV SCH ×3 (10:08→23:33)
[2017-05-24] MEDS: Pregabalin 50 MG Cap PO SCH ×2 (10:22→22:00)
[2017-05-24] MEDS: Potassium Phosphates 22.5 MMOLE in Sodium Chloride 0.9% 250 ML IV SCH ×2 (12:41→19:14)
[2017-05-24] MEDS: Acetaminophen 325 MG Tab PO PRN (16:18)
[2017-05-24] MEDS: Pantoprazole 40 MG Vial IV SCH (16:39)
[2017-05-25] MEDS: Magnesium Sulfate/Water 2 GM in Premix Bag 1 BAG IV SCH ×4 (03:37→21:42)
[2017-05-25] MEDS ORDERED: Bupivacaine 0.5%/EPINEPHrine 1:200,000 50 ML MDV ONE (07:44)
[2017-05-25] MEDS ORDERED: Midazolam 1 MG/ML 2 ML SDV ONE (07:53)
[2017-05-25] MEDS ORDERED: fentaNYL 100 MCG/2 ML SDV ONE (07:53)
[2017-05-25] MEDS ORDERED: Rocuronium 50 MG/5 ML Vial ONE (07:54)
[2017-05-25] MEDS ORDERED: Succinylcholine 200 MG/10 ML MDV ONE (07:54)
[2017-05-25] MEDS ORDERED: Neostigmine Methylsulfate 1 MG/ML 5 ML Syringe ONE (07:54)
[2017-05-25] MEDS ORDERED: Ondansetron 4 MG/2 ML SDV ONE (07:54)
[2017-05-25] MEDS ORDERED: Glycopyrrolate 0.2 MG/ML 5 ML MDV ONE (07:54)
[2017-05-25] MEDS ORDERED: Propofol 200 MG/20 ML SDV ONE (07:54)
[2017-05-25] MEDS ORDERED: Dexamethasone 4 MG/ML SDV ONE (07:54)
[2017-05-25] MEDS ORDERED: Meropenem 500 MG in Sodium Chloride 0.9% 50 ML IV ONE (08:00)
[2017-05-25] MEDS ORDERED: Ketamine 500 MG/5 ML MDV IV ONE (08:00)
[2017-05-25] MEDS ORDERED: hydrOXYzine HCl 100 MG/2 ML SDV IM ONE (10:00)
[2017-05-25] MEDS: Dextrose 5%-Lactated Ringers 1,000 ML IV SCH ×2 (10:38→19:31)
[2017-05-25] MEDS ORDERED: Acetaminophen/HYDROcodone 325-5 MG Tab PO PRN (11:14)
[2017-05-25] MEDS: DULoxetine 30 MG Cap PO SCH ×2 (12:38→21:39)
[2017-05-25] MEDS: Zonisamide 50 MG Capsule PO SCH ×2 (12:38→21:40)
[2017-05-25] MEDS: Levothyroxine 75 MCG Tab PO SCH (12:39)
[2017-05-25] MEDS: Topiramate 25 MG Tab PO SCH ×2 (12:39→21:41)
[2017-05-25] MEDS: buPROPion 150 MG Tab.ER PO SCH (12:39)
[2017-05-25] MEDS: Chlorthalidone 25 MG Tab PO SCH (12:40)
[2017-05-25] MEDS: Pregabalin 50 MG Cap PO SCH ×2 (12:42→21:54)
--- NOTE | 2017-05-25 12:59 | PN ---
DATE OF SERVICE: 05/24/2017 The patient has been afebrile with stable vital signs overnight. Examination still shows her to be fairly tender across the upper abdomen and amylase is still mildly elevated. Otherwise, liver function tests are improving. She likely has had her gallstone pancreatitis episode here. We will give her probably one more day to cool off, give her some clear liquids today, and then plan for a cholecystectomy tomorrow. Her magnesium and potassium were both marginally low, and those were re-supplemented today. We will give her meropenem on-call to OR as the carbapenems have particularly good penetration into the pancreatic tissue. Pending clinical and laboratory improvement, we will plan for a cholecystectomy tomorrow morning. Gordon Lucia MD /[id number]
[2017-05-25] MEDS: Meropenem 500 MG in Sodium Chloride 0.9% 50 ML IV SCH ×2 (14:05→20:30)
--- NOTE | 2017-05-25 16:14 | PN ---
DATE OF SERVICE: 05/25/2017 The patient has been clinically stable over the last 24 hours. Her abdominal examination was quite benign this morning. Her amylase and lipase have both normalized, and the liver function tests are continuing to improve as well. Chemistry appeared to be suitable at this point for proceeding with the laparoscopic cholecystectomy. Potential risks of the procedure including bleeding, infection, injury to underlying viscera, possible exacerbation of the pancreatitis, and stones moving into the common bile duct, as well as possibility of cardiopulmonary, septic, or hemorrhagic complications leading to were discussed, and the patient wishes to proceed. Surgery will be undertaken this morning. We will give her meropenem preoperatively as this has quite good pancreatic penetration compared to other antibiotics. Gordon Lucia MD /[id number]
[2017-05-25] MEDS: Pantoprazole 40 MG Vial IV SCH (16:40)
[2017-05-25] MEDS: traMADol 50 MG Tab PO PRN (20:29)
[2017-05-26] MEDS: Acetaminophen 325 MG Tab PO PRN (00:03)
[2017-05-26] MEDS: Meropenem 500 MG in Sodium Chloride 0.9% 50 ML IV SCH (01:38)
[2017-05-26] MEDS: Magnesium Sulfate/Water 2 GM in Premix Bag 1 BAG IV SCH (03:26)
[2017-05-26] MEDS: traMADol 50 MG Tab PO PRN ×2 (03:34→09:37)
[2017-05-26 07:57] VITALS: BP 128/59
[2017-05-26] MEDS: Levothyroxine 75 MCG Tab PO SCH (08:03)
[2017-05-26] MEDS: buPROPion 150 MG Tab.ER PO SCH (08:04)
[2017-05-26] MEDS: DULoxetine 30 MG Cap PO SCH (08:04)
[2017-05-26] MEDS: Chlorthalidone 25 MG Tab PO SCH (08:04)
[2017-05-26] MEDS: Topiramate 25 MG Tab PO SCH (08:04)
[2017-05-26] MEDS: Zonisamide 50 MG Capsule PO SCH (08:05)
[2017-05-26] MEDS: Pregabalin 50 MG Cap PO SCH (08:11)
--- NOTE | 2017-05-28 13:17 | DISCH ---
FINAL DIAGNOSES: 1. Chronic and subacute cholecystitis and cholelithiasis, status post gallstone pancreatitis. 2. 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 3. Umbilical hernia. 4. Morbid obesity, status post Anthony-en-Y gastric bypass. 5. History of hypertension. 6. History of obstructive sleep apnea. 7. Fibromyalgia. 8. Arthritis. 9. Anxiety and depression. 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 OPERATIVE PROCEDURES: This was done on 05/25/2017, diagnostic laparoscopy with: 1. Cholecystectomy. 2. Repair of deserosalized segment of duodenum. 3. Wedge biopsy of liver. 4. Umbilical hernia repair. HOSPITAL COURSE: This is a 46-year-old female presenting with a picture of a gallstone pancreatitis with the patient having acute upper abdominal pain and CT showing some elevation of liver function tests, along with amylase and lipase being elevated. CT scan showed thick-walled gallbladder, as well as thickening of the pancreatic head. Over the 36 hours initially of being treated, her pancreatitis clinically resolved, and the laboratory findings improved significantly as well. On 05/25/2017, the patient underwent diagnostic laparoscopy which showed her to have umbilical hernia, which was repaired concurrently, and markedly inflamed gallbladder both chronically and in subacute manner. This was densely adherent to the second portion of the duodenum with the gallbladder neck being more or less fused. This resulted in some deserosalization of the duodenum, which was repaired with sutures and fibrin sealant. The patient also had multiple nodules in her liver. These most likely would be bile duct hamartomas, but they appeared to be fairly pronounced and numerous. Given this, a wedge liver biopsy was obtained as well. Postoperatively, the patient had no significant problems. She was tolerating a regular gastric bypass diet. She will be sent home on Ultram 50 to 100 mg q.6 hours p.r.n. pain, #50, 50 mg Ultram tablets being prescribed. Otherwise, she will continue her present home medications, and she will be following up with Mely Moore at [facility] on 06/03/2017.
--- NOTE | 2017-06-17 12:12 | OR ---
DATE OF PROCEDURE: 05/26/2017 PREOPERATIVE DIAGNOSIS: Chronic cholecystitis, status post gallstone pancreatitis. POSTOPERATIVE DIAGNOSES: 1. Chronic and subacute cholecystitis and cholelithiasis, status post gallstone pancreatitis. 2. Multiple liver nodules. 3. Inflammatory fusion of gallbladder neck to duodenum. 4. Umbilical hernia. OPERATIVE PROCEDURES: Diagnostic laparoscopy with; 1. Cholecystectomy (68571). 2. Repair of deserosalized segment of duodenum (28504). 3. Wedge biopsy of liver (04187). 4. Umbilical hernia repair (59994). ANESTHESIA: General. INDICATION FOR PROCEDURE: This is a 46-year-old status post an episode of gallstone pancreatitis. Presently, her clinical and laboratory exams have become nearly normal. The plan is to proceed with an interval cholecystectomy to prevent future attacks. Potential risks of the procedure including bleeding, infection, injury to underlying viscera, problems with gallstone migrating in the common bile duct requiring any additional procedures and/or creating recurrent pancreatitis, as well as the possibility of cardiopulmonary, septic, or hemorrhagic complications leading to were gone over, and the patient wishes to proceed. DETAILS OF PROCEDURE: The patient was taken to the operating room and placed in a supine position. After general endotracheal anesthesia was induced, the abdomen was prepped and draped. Transverse epigastric incision was then made and peritoneal cavity entered under direct vision with an Optiview trocar. The peritoneal cavity was inflated to 15 mmHg of CO2. Laparoscope was reinserted. No underlying trocar insertion site injuries were seen. As one peered down toward the umbilicus, it became evident that the patient had a small umbilical hernia. A transverse incision was made over that area, and the hernia contents dissected free. Through the defect, the 12-mm trocar was easily accepted, and the camera had been moved down to that location. One additional 5-mm trocar was placed in the right upper quadrant and the upper abdomen examined. Finding was that of multiple tiny liver nodules, these were whitish and probably consistent with bile duct hamartomas, but to be sure of this, a wedge biopsy of the right lobe of liver was then undertaken with Harmonic scalpel and that specimen was delivered from the field containing several nodules. At this point, the gallbladder was retracted anterolaterally. Gallbladder was both chronically inflamed and also had quite a bit in the way of acute edema present consistent with subacute cholecystitis as well. The gallbladder was retracted anteriorly and laterally. Dissection began on the gallbladder neck. As the dissection began, there was noted to be inflammatory fusion of the duodenum adjacent to the gallbladder neck in the area of the cystohepatic triangle. As this was dissected down, there was a small area of deserosalization of the duodenum. This was subsequently repaired with a [id number] stitch of 3-0 Vicryl seromuscular stitch along with fibrin sealant. The gallbladder dissection was then continued with identification of the junction of the gallbladder neck and cystic duct along with cystic artery. Once these were both identified, the decision was made to proceed with a stapler division of the cystic duct as it was fairly wide. This was accomplished with a PHILIPPE harris load. The cystic artery was then clipped 3 times proximally and once distally and divided with the Harmonic scalpel. The gallbladder dissection was then continued off the gallbladder bed with Harmonic scalpel, and the gallbladder delivered through the epigastric trocar site. Once this was accomplished, the area was inspected. No bleeding or bile leaks were seen. The fibrin sealant was placed over the area of the duodenal repair and Stephen-Franz was taken out through the right lateral trocar site and positioned into the gallbladder bed. The camera was then brought up to the epigastric port once again and, upon removal of the umbilical hernia site trocar, this was closed with a laparoscopic suture passer using 0 Vicryl sutures, closing this with a series of stitches in a transversely-oriented positioned. The remaining trocars were then removed, and the peritoneal cavity was deflated. The fascia at the epigastric site was closed with 0 Vicryl stitch as well, and the hernia repair suture was then tied. The incisions were then closed with some 4-0 Vicryl skin stitch. Dressing was applied. The patient was taken to the recovery room in a satisfactory condition. There were no evident complications. Gordon Lucia MD /[id number]
== END 2017-05-26 10:59 | disposition home or self-care (01) | DRG 417 ==
LOC: JP.ED 12:26 → JP.2SS 17:26
PROVIDERS: ADMIT Internal Medicine; ATTEND Internal Medicine
PROC: 0WQF4ZZ Repair Abdominal Wall, Percutaneous Endoscopic Approach (ICD-10-PCS; principal; 2017-05-25)
PROC: 0DL Gastrointestinal System, Occlusion (ICD-10-PCS; principal; 2017-05-25)
PROC: 0FT44ZZ Resection of Gallbladder, Percutaneous Endoscopic Approach (ICD-10-PCS; principal; 2017-05-25)
PROC: 0FB14ZX Excision of Right Lobe Liver, Percutaneous Endoscopic Approach, Diagnostic (ICD-10-PCS; principal; 2017-05-25)
DX: K80.12 Calculus of gallbladder with acute and chronic cholecystitis without obstruction (principal); K85.10 Biliary acute pancreatitis without necrosis or infection; Z68.43 Body mass index [BMI] 50.0-59.9, adult; Q85.9 Phakomatosis, unspecified; K42.9 Umbilical hernia without obstruction or gangrene; I10 Essential (primary) hypertension; G47.33 Obstructive sleep apnea (adult) (pediatric); E53.8 Deficiency of other specified B group vitamins; H54.7 Unspecified visual loss; M19.90 Unspecified osteoarthritis, unspecified site; M79.7 Fibromyalgia; K21.9 Gastro-esophageal reflux disease without esophagitis; K58.9 Irritable bowel syndrome, unspecified; F41.8 Other specified anxiety disorders; E03.9 Hypothyroidism, unspecified; E66.01 Morbid (severe) obesity due to excess calories; Z79.899 Other long term (current) drug therapy; Z87.891 Personal history of nicotine dependence; Z98.84 Bariatric surgery status; K82.8 Other specified diseases of gallbladder; K76.89 Other specified diseases of liver
CPT/HCPCS: 36415; 74176; 76705; 76705-26; 80053; 82150; 83690; 83735; 84100; 84443; 85025; 85027; 88304; 88307; 94762; 96365; 96366; 96367; 99285-25; A9270-GY; C9113; J0330; J1100; J1170; J2185; J2250; J2405; J2704; J2710; J3010; J3410; J3411; J3475; J3490; J7040; J7042; J7050

== ENCOUNTER 2017-07-13 06:12 | Day surgery (SDC) | payer MEDICAID ==
[2017-07-13] MEDS ORDERED: Lactated Ringers 1,000 ML IV SCH (06:45)
[2017-07-13] MEDS ORDERED: Propofol 200 MG/20 ML SDV ONE (06:55)
[2017-07-13] MEDS ORDERED: fentaNYL 100 MCG/2 ML SDV ONE (06:55)
[2017-07-13] MEDS ORDERED: Midazolam 1 MG/ML 2 ML SDV ONE (06:56)
[2017-07-13] MEDS ORDERED: Glycopyrrolate 0.2 MG/ML 2 ML SDV IVPUSH ONE (08:00)
[2017-07-13] MEDS ORDERED: MVI, Adult with Vitamin K 10 ML, Thiamine 200 MG, Chromium/Copper/Mang/Selen/Zn 1 ML in... IV ONE ×4 (08:00)
[2017-07-13] MEDS ORDERED: Cyanocobalamin (Vitamin B12) 1,000 MCG/ML SDV IM ONE (08:00)
[2017-07-13] MEDS ORDERED: Pantoprazole 40 MG Vial IVPUSH ONE (09:00)
[2017-07-13] MEDS ORDERED: HYDROmorphone 1 MG/ML Syringe IVPUSH ONE (09:43)
[2017-07-13] MEDS ORDERED: HYDROmorphone 2 MG Tab PO ONE (11:15)
[2017-07-13 11:19] VITALS: BP 114/64
--- NOTE | 2017-07-15 13:30 | OR ---
DATE OF PROCEDURE: 07/13/2017 PREOPERATIVE DIAGNOSIS: Probable strictured gastrojejunostomy. POSTOPERATIVE DIAGNOSES: 1. Very mild stricture at gastrojejunostomy as well as a mild stricture at esophagogastric junction. 2. Moderate pouch gastritis. OPERATIVE PROCEDURES: Upper GI endoscopy with; 1. Dilation of gastrojejunostomy (72427). 2. Dilation of esophagogastric junction (80167). ANESTHESIA: IV sedation. INDICATION FOR PROCEDURE: This 46-year-old is status post Anthony-en-Y gastric bypass, presenting with some dysphagia and epigastric discomfort. Plan is to proceed with upper GI endoscopy with dilation and/or biopsies as indicated. Potential risks including bleeding and perforation were discussed, and the patient wishes to proceed. DETAILS OF PROCEDURE: The patient was taken to the operating room and placed in a left lateral decubitus position. IV sedation was administered, after which the upper GI endoscope was passed orally through the length of the esophagus and then into the gastric pouch, and from there through the gastrojejunostomy roughly 20 cm into the Anthony limb. Findings included normal hypopharynx, larynx, upper esophageal sphincter, and esophageal body. At the EG junction, there was noted to be some degree of stricturing present. The gastric pouch had some [id number] redness and edema consistent with some pouch gastritis. The gastrojejunostomy was slightly narrowed, but easily accepted the 1 cm scope and associated with that was no marginal ulcer. The remaining portion of the Anthony limb was unremarkable. At this point, using 54-Cameroonian balloon dilator, the gastrojejunostomy and then subsequently the esophagogastric junction were both dilated. This resulted in slight increase in diameter at both sites with a small amount of blood being present after the dilation. The scope was then withdrawn, and the procedure then concluded. The patient was taken to the recovery room in a satisfactory condition. The patient's symptoms appeared to be most likely predominantly related to the pouch gastritis. She will be given Protonix 40 mg IV push in recovery room and will be started on 40 mg of Protonix orally daily. Followup will be with Mely Moore in one month. Gordon Lucia MD /[id number]
== END 2017-07-13 11:30 | disposition home or self-care (01) ==
LOC: JP.SDS 06:12
PROVIDERS: ATTEND Surgery
DX: K29.70 Gastritis, unspecified, without bleeding (principal); K95.89 Other complications of other bariatric procedure; J30.81 Allergic rhinitis due to animal (cat) (dog) hair and dander
CPT/HCPCS: 43233; A9270; C9113; J1170; J2250; J2704; J3010; J3411; J3420; J7120; J3490

== ENCOUNTER 2017-11-01 07:59 | Day surgery (SDC) | payer MEDICAID ==
[2017-11-01] MEDS ORDERED: Lactated Ringers 1,000 ML IV ONE (08:30)
[2017-11-01] MEDS ORDERED: Cyanocobalamin (Vitamin B12) 1,000 MCG/ML SDV IM ONE (08:30)
[2017-11-01] MEDS ORDERED: Glycopyrrolate 0.2 MG/ML 2 ML SYRINGE IVPUSH ONE (09:15)
[2017-11-01] MEDS ORDERED: MVI, Adult with Vitamin K 10 ML, Thiamine 200 MG, Chromium/Copper/Mang/Selen/Zn 1 ML in... IV ONE ×4 (09:30)
[2017-11-01] MEDS ORDERED: Midazolam 1 MG/ML 2 ML SDV ONE (10:45)
[2017-11-01] MEDS ORDERED: fentaNYL 100 MCG/2 ML SDV ONE (10:45)
[2017-11-01] MEDS ORDERED: Propofol 200 MG/20 ML SDV ONE (10:45)
[2017-11-01 12:38] VITALS: BP 144/98
--- NOTE | 2017-11-07 08:01 | OR ---
DATE OF PROCEDURE: 11/01/2017 PREOPERATIVE DIAGNOSIS: History of upper abdominal pain. POSTOPERATIVE DIAGNOSIS: History of abdominal pain with normal exam status post Anthony-en-Y gastric bypass. OPERATIVE PROCEDURE: Upper GI endoscopy with biopsies of gastric pouch for CLOtest. ANESTHESIA: IV sedation. INDICATION FOR PROCEDURE: This is a 47-year-old presenting with some episodes of upper abdominal pain radiating to the back, did have some episodes of pancreatitis and recently normal CT scan and MRCP was also unremarkable, other than for some pancreatic inflammation; however, she is status post previous cholecystectomy. The plan is to proceed with upper GI endoscopy with biopsies or dilation as indicated. Potential risks including bleeding and perforation were discussed, and the patient wishes to proceed. DESCRIPTION OF PROCEDURE: The patient was taken to the operating room and placed in a left lateral decubitus position. IV sedation was administered, after which the upper GI endoscope was passed orally through the length of the esophagus and into the gastric pouch, from there through the gastrojejunostomy, roughly 20 cm into the Anthony limb. Overall examination was entirely normal. There were no areas of stricturing or inflammation noted. The biopsies were obtained from the gastric pouch and sent for CLOtest for H. pylori. Minimal bleeding from the biopsy site was seen and the procedure then concluded. At this point, we will have the patient continue the proton pump inhibitors, and it is also notable that her potassium and magnesium are low. She will be given prescriptions for supplements for those. To be followed up with Mely Moore at [facility] in 3 weeks with repeat labs to be drawn at that time. Gordon Lucia MD /[id number]
== END 2017-11-01 12:35 | disposition home or self-care (01) ==
LOC: JP.SDS 07:59
PROVIDERS: ATTEND Surgery
DX: R10.10 Upper abdominal pain, unspecified (principal); I10 Essential (primary) hypertension; E03.9 Hypothyroidism, unspecified; K21.9 Gastro-esophageal reflux disease without esophagitis; J30.81 Allergic rhinitis due to animal (cat) (dog) hair and dander
CPT/HCPCS: 43239; 87081; J2250; J2704; J3010; J3420; J7120

== ENCOUNTER 2018-01-06 10:13 | Day surgery (SDC) | payer MEDICAID ==
[~2018-01-06 10:13] MED LIST: Cyanocobalamin (Vitamin B12) 1,000 MCG/ML SDV IM ONE; Glycopyrrolate 0.2 MG/ML 2 ML SDV IVPUSH ONE; Lactated Ringers 1,000 ML IV SCH; Midazolam 1 MG/ML 2 ML SDV ONE; Propofol 200 MG/20 ML SDV ONE; fentaNYL 100 MCG/2 ML SDV ONE
[2018-01-06] MEDS ORDERED: MVI, Adult with Vitamin K 10 ML, Thiamine 100 MG, Chromium/Copper/Mang/Selen/Zn 1 ML in... IV ONE ×4 (11:00)
[2018-01-06] MEDS ORDERED: MVI, Adult with Vitamin K 10 ML, Thiamine 200 MG, Chromium/Copper/Mang/Selen/Zn 1 ML in... IV ONE ×4 (11:00)
[2018-01-06] MEDS ORDERED: Ondansetron 4 MG/2 ML SDV ONE (11:01)
[2018-01-06] MEDS ORDERED: Pantoprazole 40 MG Vial IVPUSH ONE (11:27)
[2018-01-06] MEDS ORDERED: Hyoscyamine 0.125 MG Tab.SL SL ONE (13:49)
[2018-01-06] MEDS ORDERED: Alum Hydrox/Mag Hydrox/Simeth 15 ML, Lidocaine 2% 15 ML PO ONE ×2 (13:49)
[2018-01-06 14:18] VITALS: BP 130/77
--- NOTE | 2018-01-12 14:21 | OR ---
DATE OF PROCEDURE: 01/06/2018 PREOPERATIVE DIAGNOSIS: Dysphagia, status post Anthony-en-Y gastric bypass. POSTOPERATIVE DIAGNOSIS: Dysphagia, status post Anthony-en-Y gastric bypass with minimal pouch gastritis. OPERATIVE PROCEDURE: Upper GI endoscopy with biopsies of gastric pouch for CLOtest. ANESTHESIA: IV sedation. INDICATION FOR PROCEDURE: This is a 47-year-old status post Anthony-en-Y gastric bypass presenting with some worsening dysphagia referable to the distal esophagus or gastrojejunostomy area. Plan is to proceed with upper GI endoscopy with biopsies and/or dilation as indicated. Potential risks including bleeding and perforation were discussed, and the patient wishes to proceed. DETAILS OF PROCEDURE: The patient was taken to the operating room and placed in a left lateral decubitus position. IV sedation was administered, after which the upper GI endoscope was passed orally through the length of the esophagus and into the gastric pouch, from there through the gastrojejunostomy roughly 20 cm into the Anthony limb. Findings included normal esophagus and EG junction area. The gastric pouch had some very mild redness and friability. The gastrojejunostomy was widely patent, i.e. no stricture present and there was no inflammation or signs of problems such as marginal ulcer. The visualized portion of the Anthony limb was likewise unremarkable. At this point, biopsies were obtained from the gastric pouch, sent for CLOtest for H. pylori. Minimal bleeding from the biopsy site was seen and the procedure was then concluded. The patient at this point has no obvious point of mechanical obstruction which would account for her dysphagia. Give her trial of Levsin 0.125 mg sublingual q.i.d. to see if this will help with regard to esophageal spasm. [facility] in 1 month. Gordon Lucia MD /[id number]
== END 2018-01-06 14:30 | disposition home or self-care (01) ==
LOC: JP.SDS 10:13
PROVIDERS: ATTEND Surgery
DX: K29.70 Gastritis, unspecified, without bleeding (principal); I10 Essential (primary) hypertension; K21.9 Gastro-esophageal reflux disease without esophagitis; E66.9 Obesity, unspecified; Z88.8 Allergy status to other drugs, medicaments and biological substances; Z98.84 Bariatric surgery status; J30.81 Allergic rhinitis due to animal (cat) (dog) hair and dander
CPT/HCPCS: 36415; 43239; 80053; 82150; 82728; 83550; 83690; 85027; 87081; A9270; C9113; J2250; J2405; J2704; J3010; J3411; J3420; J7120; J3490

== ENCOUNTER 2018-01-14 11:27 | Inpatient (IN) | payer MEDICAID ==
[2018-01-14] MEDS ORDERED: Naloxone 0.4 MG/ML SDV IV PRN (11:52)
[2018-01-14] MEDS ORDERED: Hyoscyamine 0.125 MG Tab.SL SL PRN (11:55)
[2018-01-14] MEDS ORDERED: Lactated Ringers 1,000 ML IV ONE (12:00)
[2018-01-14] MEDS: Dextrose 5%-Lactated Ringers 1,000 ML IV SCH ×2 (12:06→18:55)
[2018-01-14] MEDS: HYDROmorphone/Normal Saline 15 MG/30 ML PCA IV PRN (12:24)
[2018-01-14] MEDS: Ondansetron 4 MG/2 ML SDV IVPUSH PRN ×2 (12:27→17:39)
[2018-01-14] MEDS: Pantoprazole 40 MG Vial IV SCH (13:13)
[2018-01-15] MEDS: Dextrose 5%-Lactated Ringers 1,000 ML IV SCH ×3 (01:34→21:13)
[2018-01-15] MEDS: Ondansetron 4 MG/2 ML SDV IVPUSH PRN ×3 (02:12→20:07)
[2018-01-15] MEDS ORDERED: Zolpidem 5 MG Tab PO PRN (08:16)
[2018-01-15] MEDS ORDERED: LORazepam 0.5 MG Tab PO PRN (08:16)
[2018-01-15] MEDS ORDERED: Loperamide 2 MG Cap PO PRN (08:16)
[2018-01-15] MEDS ORDERED: DULoxetine 30 MG Cap PO SCH (08:30)
[2018-01-15] MEDS ORDERED: LACTOBACILLUS ACIDOPHILUS PO SCH (09:00)
[2018-01-15] MEDS: Lactobacillus Rhamnosus GG (Probiotic) Cap PO SCH ×2 (09:56→21:17)
[2018-01-15] MEDS: Levothyroxine 75 MCG Tab PO SCH (09:56)
[2018-01-15] MEDS: Chlorthalidone 25 MG Tab PO SCH (09:57)
[2018-01-15] MEDS: DULoxetine 30 MG Cap PO SCH ×2 (09:57→17:06)
[2018-01-15] MEDS ORDERED: MVI, Adult with Vitamin K 10 ML, Thiamine 100 MG, Magnesium Sulfate 2 GM, Folic Acid 1 ... IV ONE ×5 (10:00)
[2018-01-15] MEDS: Pregabalin 100 MG Cap PO SCH ×3 (10:09→21:21)
--- NOTE | 2018-01-15 11:11 | PN ---
DATE OF SERVICE: 01/15/2018 SUBJECTIVE: Dary was admitted for partial small bowel obstruction yesterday. She reports her pain has been controlled with a Dilaudid METAL TEMPERER. She used 1 mg during the night. She had Zofran once. Oral intake, she was on ice chips, so very minimal. Urine output was 500 mL and she had one bowel movement and no emesis. She took Zofran once for some nausea. REVIEW OF SYSTEMS: HEENT: Negative. NECK: Negative for pain. CHEST: No chest pain, shortness of breath, fast or irregular heartbeat. LUNGS: No cough. ABDOMEN: As above. : Negative. EXTREMITIES: Chronic joint pain. SKIN: Negative for rash. NEUROLOGIC: No headaches or dizziness. PSYCHIATRIC: Positive for depression. Remainder of review of systems is negative for any pertinent positives and negatives. OBJECTIVE: GENERAL: Dary Gallegos is a 47-year-old female. She is sitting up in the chair. She was asked to lay down in bed for examination. VITAL SIGNS: TPR 96.6, 60, 16, blood pressure 108/60. HEENT: Negative. NECK: Supple. HEART: Regular rate and rhythm. LUNGS: Clear. ABDOMEN: Much less tender today. EXTREMITIES: With trace peripheral edema. ASSESSMENT: Nausea, vomiting, a short-segment of intussusception and a small bowel loop, dehydration, SP Anthony-en-Y gastric bypass surgery, unspecified surgical malabsorption, B12 deficiency. PLAN: 1. Step 4 gastric bypass diet. 2. Accurate intake and output. 3. We will evaluate p.r.n. or in a.m. Mely Moore PA-C /[id number]
[2018-01-15] MEDS: Pantoprazole 40 MG Vial IV SCH (13:05)
[2018-01-15] MEDS: risperiDONE 1 MG Tab PO SCH (21:21)
[2018-01-16] MEDS: Dextrose 5%-Lactated Ringers 1,000 ML IV SCH ×2 (03:37→11:13)
[2018-01-16] MEDS: Lactobacillus Rhamnosus GG (Probiotic) Cap PO SCH ×2 (08:14→21:47)
[2018-01-16] MEDS: DULoxetine 30 MG Cap PO SCH ×2 (08:14→22:04)
[2018-01-16] MEDS: Chlorthalidone 25 MG Tab PO SCH (08:15)
[2018-01-16] MEDS: Levothyroxine 75 MCG Tab PO SCH (08:15)
[2018-01-16] MEDS: Pregabalin 100 MG Cap PO SCH ×3 (08:23→22:05)
[2018-01-16] MEDS ORDERED: Bupivacaine 0.5%/EPINEPHrine 1:200,000 50 ML MDV ONE (10:30)
[2018-01-16] MEDS ORDERED: Meropenem 500 MG SDV ONE (10:30)
[2018-01-16] MEDS ORDERED: cefOXitin 2 GM Vial ONE (10:30)
--- NOTE | 2018-01-16 10:37 | PN ---
DATE OF SERVICE: 01/16/2018 HISTORY OF PRESENT ILLNESS: Dary continues to be severely nauseated and has midabdominal pain. Oral intake yesterday was 620. Urine output 900 and she had one bowel movement. REVIEW OF SYSTEMS: Remainder of review of systems negative for any pertinent positives and negatives. OBJECTIVE: GENERAL: Dary is a 47-year-old female. She is alert and orientated. VITAL SIGNS: TPR 97.3, 73, 16, blood pressure 110/71. HEENT: Negative. NECK: Supple. HEART: Regular rate and rhythm. LUNGS: Clear. ABDOMEN: Palpated tenderness in the periumbilical area, radiates to the left. EXTREMITIES: Without peripheral edema. ASSESSMENT: 1. Nausea, vomiting. 2. Short-segment of intussusception in a small bowel loop. 3. Dehydration, resolved. 4. SP Anthony-en-Y gastric bypass surgery. 5. Unspecified surgical malabsorption. 6. B12 deficiency. 7. History of pancreatitis. PLAN: 1. Schedule and have consent signed for laparoscopic possible laparotomy for release of partial small bowel obstruction and possible small bowel resection. General anesthesia. TAP block. Case to follow , 01/16/2018. N.p.o. Gordon Lucia MD. 2. Cefoxitin 2 g IV on-call to OR. Mely Moore PA-C /[id number]
[2018-01-16] MEDS: Pantoprazole 40 MG Vial IV SCH (11:14)
[2018-01-16] MEDS ORDERED: cefOXitin 2 GM in Sodium Chloride 0.9% 50 ML IV ONE (12:00)
[2018-01-16] MEDS ORDERED: Ketamine 500 MG/5 ML MDV IV SCH (12:00)
[2018-01-16] MEDS ORDERED: Ropivacaine 45 ML, Dexamethasone 8 MG, EPINEPHrine 0.4 MG, Sodium Chloride 0.9% 32.6 ML NERVRT SCH ×4 (12:00)
[2018-01-16] MEDS ORDERED: Lidocaine 0.4%/D5W 2 GM/500 ML BAG IV SCH (12:00)
[2018-01-16] MEDS ORDERED: Lidocaine 2% 100 MG/5 ML Syringe IVPUSH ONE (12:00)
[2018-01-16] MEDS ORDERED: fentaNYL 250 MCG/5 ML SDV ONE ×2 (12:43→17:25)
[2018-01-16] MEDS ORDERED: Rocuronium 50 MG/5 ML Vial ONE (12:44)
[2018-01-16] MEDS ORDERED: Dexamethasone 4 MG/ML SDV ONE (12:44)
[2018-01-16] MEDS ORDERED: Propofol 200 MG/20 ML SDV ONE (12:44)
[2018-01-16] MEDS ORDERED: Ondansetron 4 MG/2 ML SDV ONE (12:44)
[2018-01-16] MEDS ORDERED: Neostigmine Methylsulfate 1 MG/ML 5 ML Syringe ONE (12:44)
[2018-01-16] MEDS ORDERED: Glycopyrrolate 0.2 MG/ML 5 ML MDV ONE (12:44)
[2018-01-16] MEDS ORDERED: Succinylcholine 200 MG/10 ML MDV ONE (12:44)
[2018-01-16] MEDS ORDERED: Lactated Ringers 1,000 ML ONE (16:50)
[2018-01-16] MEDS ORDERED: Lactated Ringers 1,000 ML IV SCH (19:00)
[2018-01-16] MEDS: HYDROmorphone/Normal Saline 15 MG/30 ML PCA IV PRN (19:17)
[2018-01-16] MEDS ORDERED: Dextrose 5%-Lactated Ringers 1,000 ML IV SCH (20:00)
[2018-01-16] MEDS ORDERED: hydrOXYzine HCl 100 MG/2 ML SDV IM PRN (20:23)
[2018-01-16] MEDS ORDERED: Metoclopramide 10 MG/2 ML SDV IVPUSH PRN (20:35)
[2018-01-16] MEDS ORDERED: diphenhydrAMINE 50 MG/ML SDV IVPUSH PRN (20:37)
[2018-01-16] MEDS ORDERED: Labetalol 20 MG/4 ML Syringe IVPUSH PRN (20:45)
[2018-01-16] MEDS: Ondansetron 4 MG/2 ML SDV IVPUSH PRN (20:49)
[2018-01-16] MEDS ORDERED: Lactated Ringers 500 ML IV ONE (22:00)
[2018-01-16] MEDS: risperiDONE 1 MG Tab PO SCH (22:13)
[2018-01-16] MEDS: Acetaminophen Soln 650 MG/20.3 ML UD Cup PO SCH (22:13)
[2018-01-16] MEDS ORDERED: LORazepam 0.5 MG Tab PO PRN (22:57)
[2018-01-17] MEDS: cefOXitin 2 GM in Sodium Chloride 0.9% 50 ML IV SCH ×4 (00:53→17:56)
[2018-01-17] MEDS: Acetaminophen Soln 650 MG/20.3 ML UD Cup PO SCH ×4 (03:51→20:55)
[2018-01-17] MEDS ORDERED: Ondansetron 4 MG Tab.DIS PO PRN (08:30)
[2018-01-17] MEDS ORDERED: D5 1/2 NS w/ 20 mEq/L KCl 1,000 ML IV SCH (08:30)
--- NOTE | 2018-01-17 08:41 | CR ---
UGI wo KUB HISTORY: s/p RNY revision FINDINGS: Limited upper GI series was obtained without fluoroscopy. Water-soluble contrast was admini stered orally. Immediate along with 15 minute delayed images were obtained. Small gastric pouch is de monstrated. Contrast passes readily through the gastrojejunostomy into loops of jejunum. No obstructi on is identified. There is no contrast extravasation. Contrast does not appear to have reached the je junal/jejunal anastomosis on the 15 minute image. Midline skin vivian are noted. IMPRESSION: No postoperative complication identified status post Anthony-en-Y gastric bypass.
[2018-01-17] MEDS: Chlorthalidone 25 MG Tab PO SCH (08:42)
[2018-01-17] MEDS: Celecoxib 200 MG Cap PO SCH (08:42)
[2018-01-17] MEDS: Lactobacillus Rhamnosus GG (Probiotic) Cap PO SCH ×2 (08:43→20:54)
[2018-01-17] MEDS: DULoxetine 30 MG Cap PO SCH ×2 (08:43→18:02)
[2018-01-17] MEDS: Heparin Sodium 5,000 Units/ML Vial SUBCUT SCH ×2 (08:44→20:53)
[2018-01-17] MEDS: Levothyroxine 75 MCG Tab PO SCH (08:44)
[2018-01-17] MEDS: Pregabalin 100 MG Cap PO SCH ×2 (08:56→20:59)
--- NOTE | 2018-01-17 09:32 | PN ---
DATE OF SERVICE: 01/17/2018 SUBJECTIVE: Dary is postoperative day 1. Vital signs have been stable. Pain is controlled and she has been up ambulating. Mckeon catheter was taken out. She has voided. She has lidocaine running for a few more hours and she is using her WIND PROJECT MANAGER. Labs today, hemoglobin 13.8 and potassium is 3.1. REVIEW OF SYSTEMS: Remainder of review of systems negative for any pertinent positives and negatives. OBJECTIVE: GENERAL: Dary Gallegos is a 47-year-old female. She is alert and orientated. VITAL SIGNS: TPR 96.8, 61, 16. Blood pressure 105/70. HEENT: Negative. NECK: Supple. HEART: Regular rate and rhythm. LUNGS: Clear. ABDOMEN: Dressings dry and intact. Abdominal binder is on. RUFINO drain put out 3 mL of a light pink serosanguineous drainage. ASSESSMENT: Laparoscopic turned to laparotomy for revision of Anthony-en-Y gastric bypass surgery, right colectomy, and placement of Interceed mesh for extensive intraabdominal adhesions, partial small bowel obstruction secondary to recurrent intussusception at the JJ and focal ischemic area in the cecum. Date of surgery 01/16/2018. PLAN: 1. Magnesium 2 g IV q.6 hours x72 hours. 2. Step 4 gastric bypass diet. 3. Discontinue D5 LR. 4. Rx D5 one-half normal saline, 20 mEq, 100 mL/h. 5. Check BMP, BNP, phos, and CBC in a.m. 6. Zofran ODT 4 mg sublingual q.4 hours p.r.n. nausea. 7. Good pulmonary toilet. 8. We will evaluate p.r.n. or in a.m. Mely Moore PA-C /[id number]
[2018-01-17] MEDS: Magnesium Sulfate/Water 2 GM in Premix Bag 1 BAG IV SCH ×3 (10:20→21:05)
[2018-01-17] MEDS: Pantoprazole 40 MG Vial IV SCH (12:42)
[2018-01-17] MEDS: HYDROmorphone/Normal Saline 15 MG/30 ML PCA IV PRN (15:00)
[2018-01-17] MEDS: MVI, Adult with Vitamin K 10 ML, Thiamine 100 MG, Chromium/Copper/Mang/Selen/Zn 1 ML in... IV SCH ×4 (17:56)
[2018-01-17] MEDS: risperiDONE 1 MG Tab PO SCH (20:55)
[2018-01-18] MEDS: Magnesium Sulfate/Water 2 GM in Premix Bag 1 BAG IV SCH ×4 (03:42→22:11)
[2018-01-18] MEDS: Acetaminophen Soln 650 MG/20.3 ML UD Cup PO SCH ×5 (03:42→21:33)
[2018-01-18] MEDS: Heparin Sodium 5,000 Units/ML Vial SUBCUT SCH ×2 (08:09→19:28)
[2018-01-18] MEDS: DULoxetine 30 MG Cap PO SCH ×2 (08:09→16:55)
[2018-01-18] MEDS: Levothyroxine 75 MCG Tab PO SCH (08:10)
[2018-01-18] MEDS: Lactobacillus Rhamnosus GG (Probiotic) Cap PO SCH ×2 (08:10→22:11)
[2018-01-18] MEDS: Chlorthalidone 25 MG Tab PO SCH (08:10)
[2018-01-18] MEDS: Celecoxib 200 MG Cap PO SCH (08:12)
[2018-01-18] MEDS: Pregabalin 100 MG Cap PO SCH ×2 (08:21→22:11)
[2018-01-18] MEDS ORDERED: D5 1/2 NS w/ 20 mEq/L KCl 1,000 ML IV SCH (08:45)
[2018-01-18] MEDS ORDERED: Cyanocobalamin (Vitamin B12) 1,000 MCG/ML SDV IM ONE (09:00)
[2018-01-18] MEDS ORDERED: Remove Patch*SCOPOLAMINE TRDERM ONE (09:00)
[2018-01-18] MEDS: Potassium Chloride 20 MEQ Tab.ER PO SCH ×3 (10:40→15:12)
[2018-01-18] MEDS: Acetaminophen/HYDROcodone 325-5 MG Tab PO PRN ×2 (10:46→19:27)
[2018-01-18] MEDS: Pantoprazole 40 MG Vial IV SCH (12:51)
[2018-01-18] MEDS: MVI, Adult with Vitamin K 10 ML, Thiamine 100 MG, Chromium/Copper/Mang/Selen/Zn 1 ML in... IV SCH ×4 (16:54)
[2018-01-18] MEDS: risperiDONE 1 MG Tab PO SCH (22:11)
[2018-01-19] MEDS: Acetaminophen/HYDROcodone 325-5 MG Tab PO PRN ×2 (03:36→11:32)
[2018-01-19] MEDS: Acetaminophen Soln 650 MG/20.3 ML UD Cup PO SCH ×2 (03:38→08:30)
[2018-01-19] MEDS: Magnesium Sulfate/Water 2 GM in Premix Bag 1 BAG IV SCH ×2 (03:42→10:46)
[2018-01-19] MEDS: Celecoxib 200 MG Cap PO SCH (08:29)
[2018-01-19] MEDS: Levothyroxine 75 MCG Tab PO SCH (08:29)
[2018-01-19] MEDS: Chlorthalidone 25 MG Tab PO SCH (08:29)
[2018-01-19] MEDS: Heparin Sodium 5,000 Units/ML Vial SUBCUT SCH (08:29)
[2018-01-19] MEDS: Lactobacillus Rhamnosus GG (Probiotic) Cap PO SCH (08:29)
[2018-01-19] MEDS: DULoxetine 30 MG Cap PO SCH (08:30)
[2018-01-19] MEDS: Pregabalin 100 MG Cap PO SCH (08:33)
[2018-01-19 11:12] VITALS: BP 135/72
--- NOTE | 2018-01-19 14:05 | PN ---
DATE OF SERVICE: 01/18/2018 The patient has been afebrile with stable vital signs. Oral intake is fairly good and we will go up to a step-4 diet. Her potassium is quite low this morning and we will give her some combination of IV potassium chloride and acetate and recheck some labs in the morning. Otherwise, switch over to oral pain medication and she may be ready for discharge home tomorrow. Gordon Lucia MD /[id number]
--- NOTE | 2018-01-19 18:05 | DISCH ---
FINAL DIAGNOSES: 1. Partial small-bowel obstruction secondary to recurrent intussusception at jejunojejunostomy. 2. Resolved focal ischemia of cecum. 3. Extensive intraabdominal adhesions. 4. History of osteoarthritis. 5. Hypertension. 6. Polycystic ovary syndrome. 7. Irritable bowel syndrome. 8. Depression. 9. Treated hypothyroidism. 10.Bariatric surgery status. OPERATIVE PROCEDURES: This was done on the date of admission: 1. Diagnostic laparoscopy converted to laparotomy with. a. Revision of jejunojejunostomy component of Anthony-en-Y gastric bypass. b. Right colectomy with ileocolic anastomosis. c. Placement of Interceed mesh to reduce recurrent adhesion formation. SUMMARY: This is a 47-year-old status post Anthony-en-Y gastric bypass in December of 2016. She presents with recurrent crampy abdominal pain. CT scan showed an area of intussusception at the jejunojejunostomy, likely explaining those findings. The patient was taken to the operative room. Initial diagnostic laparoscopy showed very extensive adhesions as well as a focal dark, almost black area in the cecum suggestive of recent ischemic events. Given this, we did an open procedure. The jejunojejunostomy was then revised. The patient has lost 180 pounds since the surgery, so we did not change surgery, so we did not change her limb length significantly at the time of that revision. The pathology on the colon resection is pending. in the way of loose bowel movements though. The patient will be discharged home later today. Will continue home medications plus [place] 5/325 one or two tabs q.4 hours p.r.n. pain, #50 and fiber wafers 2 tablets b.i.d. Her magnesium and potassium were low, and those will be supplemented with magnesium oxide 400 mg p.o. q. day x 90 days and KCl 20 mEq p.o. q. day to be continued long-term. She will be sent home with step-4 diet. Her drain will be pulled prior to discharge. Follow up with Mely Moore in [facility] on 01/27/2018.
--- NOTE | 2018-01-27 09:32 | OR ---
DATE OF PROCEDURE: 01/16/2018 PREOPERATIVE DIAGNOSIS: Partial small-bowel obstruction, likely associated with recurrent intussusception at jejunojejunostomy. POSTOPERATIVE DIAGNOSES: 1. Extensive intra-abdominal adhesions. 2. Partial small-bowel obstruction secondary to recurrent intussusception at jejunojejunostomy. 3. Focal ischemia of cecum. PROCEDURE: Diagnostic laparoscopy converted to laparotomy with: 1. Revision of jejunojejunostomy component of Anthony-en-Y gastric bypass (74830). 2. Right colectomy (61088). 3. Placement of Interceed mesh to limit recurrent adhesion formation between the pelvis and abdominal wall and underlying viscera (23552). ANESTHESIA: General. SENIOR IT SPECIALIST: Mely Moore PA-C; ALEKSANDR Lozano; and ALEKSANDR Burrell. INDICATION FOR PROCEDURE: The patient admitted with some postprandial crampy abdominal pain. Workup has included a CT scan, which appears to show intussusception at the jejunojejunostomy. The plan is to proceed with a diagnostic laparoscopy, possible laparotomy, and probable revision of the jejunojejunostomy. Potential risks including bleeding, infection, injury to the underlying viscera, problems with bowel obstruction pattern recurring, as well as possibility of cardiopulmonary, septic, or hemorrhagic complications leading to were discussed, and the patient wishes to proceed. DETAILS OF PROCEDURE: The patient was taken to the operating room, and after general endotracheal anesthesia was induced, the patient was placed in a lithotomy position and the abdomen prepped and draped. In the left lower quadrant, a transverse incision was made and the peritoneal cavity entered under direct vision with an Optiview trocar, inflated to 15 mmHg pressure with CO2. Following this, the laparoscope was reinserted. No underlying trocar insertion site injuries were seen. Two 5 mm trocars placed, one on the right and one on the left side of the abdomen, and general exploration was undertaken. Additionally, bilateral transverse abdominis plane blocks were placed over the mid abdomen location with direct vision of the needle tip in the correct plane and injection of the standard solution bilaterally. Following this, the area of the jejunojejunostomy was then noted to have quite a bit in the way of adhesions present. As these were freed up, we noted that the jejunojejunostomy was quite edematous and this likely being the likely source of the patient's partial obstructive symptoms. One additional unexpected finding was that the cecum, more or less at the cecal base, had some areas of very dark purple or black coloration on the surface, indicative of some hemorrhage or possible recent ischemia. Given this, it was felt that this probably needed to be resected, and more than a laparoscopic view obtained of the entire picture. The trocars were then removed and the peritoneal cavity deflated. A midline incision from the umbilicus to roughly a handsbreadth superior to that was made and carried down through the skin and subcutaneous tissue, then through the linea alba, and the peritoneal cavity entered. Initially, the right colon was examined. This was noted to be quite thinned out and abnormal to palpation in terms of edema and thinning of mucosa at the level of the darkened area. It was felt that it would be best to proceed with a right colectomy to be sure that there is not a significant problem in that regard. Given this, the peritoneal reflection of the distal small bowel and cecum were then divided, and this plane of dissection then continued along the ascending colon. This allowed medial mobilization of the hepatic flexure and transverse colon, as the dissection continued upward, and the right colon was then divided just to the right of the middle colic vessels with a PHILIPPE purple load. The distal small bowel was divided with a harris load and the mesentery between the two points divided with combination of vascular and mesenteric loads. Care was taken to avoid injury to the right ureter and duodenum and that specimen then delivered from the field. At that point, the ileocolic anastomosis was accomplished with 2 internal firings of the Endo-PHILIPPE harris loads and the transverse colon being closed with purple loads. Angles were anastomosed, and the mesenteric defect was then approximated with some 3-0 Vicryl stitch, as well as reinforced with fibrin sealant. The area of the jejunojejunostomy was then identified with quite extensive adhesions around that, which were taken down with Harmonic scalpel, and also some adhesions down in the area of the pelvis were then taken down with cautery at this point. The decision was made at this point to revise the jejunojejunostomy, as to avoid problems with recurrent intussusception. The point where the Anthony limb entered the anastomosis was then divided with the PHILIPPE stapler. The anastomosis between what was the biliopancreatic limb and now the beginning of the common limb was found to be otherwise satisfactory. The jejunojejunostomy was then revised with reanastomosis of the common limb to the Anthony limb at approximately 30 cm distal to the original takedown. This was accomplished with internal firing of the PHILIPPE harris load and the transverse opening being closed with purple load. The angles of anastomosis were reinforced with some 3-0 Vicryl stitch. In this case, the mesenteric defect was approximated with a 2-0 silk stitch. At this point, no further problems were noted, and the abdomen was irrigated with meropenem- containing saline solution. It was felt that the pelvis and lower abdomen were at high risk for recurrent significant adhesion formation between those surfaces and the underlying viscera. Given this, an Interceed mesh was placed across those areas to displace the small bowel from those surfaces. The midline fascia was then approximated with a #2 Vicryl stitch. The subcutaneous tissue was drained with a 10-[place] round Stephen-Franz drain and the skin closed with vivian. Dressing was applied. The patient was taken to the recovery room in satisfactory condition. Physician assistant public defender, Mely Moore, played an essential role in assisting in this case, helping to position the patient, retract structures as needed, as well as suturing and cutting sutures when indicated. Her presence improved patient safety and decreased the operative time. Gordon Lucia MD /[id number]
== END 2018-01-19 12:40 | disposition home or self-care (01) | DRG 330 ==
LOC: JP.2SS 11:27
PROVIDERS: ADMIT Surgery; ATTEND Surgery
PROC: 0DBF0ZZ Excision of Right Large Intestine, Open Approach (ICD-10-PCS; principal; 2018-01-16)
PROC: 0DJD4ZZ Inspection of Lower Intestinal Tract, Percutaneous Endoscopic Approach (ICD-10-PCS; 2018-01-16)
PROC: 0DBA0ZX Excision of Jejunum, Open Approach, Diagnostic (ICD-10-PCS; 2018-01-16)
PROC: 0DNA0ZZ Release Jejunum, Open Approach (ICD-10-PCS; 2018-01-16)
PROC: 0DNW0ZZ Release Peritoneum, Open Approach (ICD-10-PCS; 2018-01-16)
PROC: 3E0T3BZ Introduction of Anesthetic Agent into Peripheral Nerves and Plexi, Percutaneous Approach (ICD-10-PCS; 2018-01-16)
PROC: 3E0M05Z Introduction of Adhesion Barrier into Peritoneal Cavity, Open Approach (ICD-10-PCS; 2018-01-16)
DX: K56.1 Intussusception (principal); K55.9 Vascular disorder of intestine, unspecified; K91.2 Postsurgical malabsorption, not elsewhere classified; K66.0 Peritoneal adhesions (postprocedural) (postinfection); Z53.31 Laparoscopic surgical procedure converted to open procedure; E87.6 Hypokalemia; E86.0 Dehydration; Z98.84 Bariatric surgery status; Z98.0 Intestinal bypass and anastomosis status; M79.7 Fibromyalgia; M19.90 Unspecified osteoarthritis, unspecified site; K21.9 Gastro-esophageal reflux disease without esophagitis; E28.2 Polycystic ovarian syndrome; F32.9 Major depressive disorder, single episode, unspecified; E03.9 Hypothyroidism, unspecified; E55.9 Vitamin D deficiency, unspecified; E53.8 Deficiency of other specified B group vitamins
CPT/HCPCS: 36415; 74177; 74177-26; 74240; 74240-26; 80048; 80053; 82150; 82728; 83690; 83735; 83880; 84100; 85027; 87493; 88305; 88307; 94762; A9270-GY; C9113; J0171; J0330; J0694; J1100; J1170; J1644; J2001; J2185; J2405; J2704; J2710; J2795; J3010; J3410; J3411; J3420; J3475; J3480; J3490; J7030; J7042; J7050; J7120; Q9965

== ENCOUNTER 2018-01-23 16:25 | Emergency (ER) | payer MEDICAID ==
[2018-01-23] MEDS ORDERED: Lactated Ringers 1,000 ML IV ONE (17:37)
[2018-01-23] MEDS ORDERED: Metoclopramide 10 MG/2 ML SDV IVPUSH ONE (17:37)
[2018-01-23] MEDS ORDERED: Morphine 4 MG/ML Syringe IVPUSH ONE (17:38)
--- NOTE | 2018-01-23 17:44 | EDM.PDOC ---
<Je Vogel - Last Filed: 01/23/18 17:39> ED HPI GENERAL MEDICAL PROBLEM - General Chief Complaint: Abdominal Pain Stated Complaint: PAIN FROM SURGERY, UNABLE TO EAT OR DRINK Time Seen by Provider: 01/23/18 17:25 Source of Information: Reports: Patient, Old Records, RN History Limitations: Reports: No Limitations - History of Present Illness INITIAL COMMENTS - FREE TEXT/NARRATIVE: 47 yo female presents with abdominal pain and vomiting after discharge from here just this past Saturday after bowel surgery. Had gastric bypass here with Dr. Lucia in . Says after discharge she was only able to eat and drink a little at a time, and now since yesterday has vomiting and nausea not relieved with Zofran. In general has generalized abdominal pain, but when she eats or drinks she has also epigastric pain. No fever or bleeding. Onset: Gradual Onset Date: 01/22/18 Duration: Day(s): (1.5 days of vomiting, had pain before that. ), Getting Worse Location: Reports: Abdomen Quality: Reports: Ache Severity: Severe Improves with: Reports: None Worsens with: Reports: Eating Context: Reports: Other (Recent bowel surgery here. ) Associated Symptoms: Reports: Nausea/Vomiting. Denies: Fever/Chills Treatments NUTRITION ASSOCIATE: Reports: Other (see below) (Zofran without benefit.) Abdomen Pain Score (Numeric/FACES): 10 - Related Data Allergies Allergy/AdvReac Type Severity Reaction Status Date / Time cat dander Allergy Cannot Verified 01/23/18 17:29 Remember dog dander Allergy Cannot Verified 01/23/18 17:29 Remember mold Allergy Cannot Verified 01/23/18 17:29 Remember quetiapine Allergy Swelling Verified 01/23/18 17:29 trichophyton Allergy Cannot Uncoded 01/06/18 10:55 Remember Home Meds: Home Meds Chlorthalidone 50 mg PO DAILY 01/17/17 [History] Levothyroxine Sodium [Synthroid] 75 mcg PO DAILY 01/17/17 [History] Loperamide [Imodium] 2 mg PO QID PRN 01/17/17 [History] Multivit with Min #53/FA/K/Q10 [Dekas Plus Softgel] 1 tab PO DAILY 01/17/17 [ History] Ondansetron [Zofran ODT] 4 mg PO Q4HR PRN 01/17/17 [History] Pregabalin [Lyrica] 100 mg PO TID 01/17/17 [History] DULoxetine HCl [Cymbalta] 90 mg PO ASDIRECTED 01/19/17 [History] B Complex With Vitamin C [B-Complex Plus Vitamin C] 1 each PO DAILY 07/12/17 [ History] Cholecalciferol (Vitamin D3) [Vitamin D3] 5,000 unit PO BID 07/12/17 [History] Cyanocobalamin (Vitamin B-12) [Vitamin B-12] 1,000 mcg SL DAILY 07/12/17 [ History] Docusate Sodium [Colace] 100 mg pe PO ASDIRECTED PRN 10/31/17 [History] Lactobacillus Acidophilus [Acidophilus] 2 cap PO BID 10/31/17 [History] Zolpidem Tartrate [Ambien] 5 mg PO BEDTIME PRN 10/31/17 [History] LORazepam [Ativan] 0.5 mg PO DAILY PRN 01/06/18 [History] risperiDONE [Risperdal] 1 mg PO BEDTIME 01/06/18 [History] Acetaminophen/HYDROcodone [Kent 325-5 MG] 1 - 2 tab PO Q4H PRN #50 tab [Rx] Inulin [Fiber Choice] 3 gm PO BID #120 tab.chew 01/19/18 [Rx] Magnesium Oxide [Magnesium] 400 mg PO DAILY #90 tablet 01/19/18 [Rx] Potassium Chloride 20 meq PO DAILY #90 tablet.er 01/19/18 [Rx] Past Medical History HEENT History: Reports: Impaired Vision Other HEENT History: wears glasses Cardiovascular History: Reports: Hypertension Respiratory History: Reports: Sleep Apnea Other Respiratory History: has not been using any cpap post op Gastrointestinal History: Reports: Cholelithiasis, Chronic Constipation, Chronic Diarrhea, Colon Polyp, GERD, Irritable Bowel Syndrome, Pancreatitis Genitourinary History: Reports: Renal Calculus, Other (See Below) Other Genitourinary History: urea plasma PROTOTYPE SEWER History: Reports: Dysfunctional Uterine Bleeding, Musculoskeletal History: Reports: Arthritis, Fibromyalgia, Osteoarthritis Neurological History: Reports: Headaches, Chronic, Migraines Psychiatric History: Reports: Anxiety, Depression, OCD, Panic Attack, PTSD Endocrine/Metabolic History: Reports: Hypothyroidism, Obesity/BMI 30+ Hematologic History: Reports: B12 Deficiency - Infectious Disease History Infectious Disease History: Reports: Chicken Pox, Shingles - Past Surgical History HEENT Surgical History: Reports: None GI Surgical History: Reports: Bariatric Procedure, Cholecystectomy, Colon, EGD, Esophageal Dilatation, Polypectomy Female Surgical History: Reports: Section, Hysterectomy Musculoskeletal Surgical History: Reports: Carpal Tunnel Social & Family History - Family History Family Medical History: Noncontributory - Tobacco Use Smoking Status *Q: Never Smoker Years of Tobacco use: 15 Packs/Tins Daily: 1 Used Tobacco, but Quit: Yes Month/Year Tobacco Last Used: 2015 Second Hand Smoke Exposure: No - Caffeine Use Caffeine Use: Reports: None - Recreational Drug Use Recreational Drug Use: No ED ROS GENERAL - Review of Systems Review Of Systems: See Below Constitutional: Reports: No Symptoms HEENT: Reports: No Symptoms Respiratory: Reports: No Symptoms Cardiovascular: Reports: No Symptoms Endocrine: Reports: No Symptoms GI/Abdominal: Reports: Abdominal Pain, Nausea, Vomiting. Denies: Black Stool, Bloody Stool, Constipation, Diarrhea, Distension, Flatus, Hematemesis, Melena : Reports: No Symptoms Musculoskeletal: Reports: No Symptoms Skin: Reports: No Symptoms Neurological: Reports: No Symptoms ED EXAM, GI/ABD - Physical Exam Exam: See Below Exam Limited By: No Limitations General Appearance: Alert, WD/WN, No Apparent Distress, Obese Eyes: Bilateral: Normal Appearance Ears: Normal External Exam, Normal Canal, Hearing Grossly Normal Nose: Normal Inspection, Normal Mucosa, No Blood Throat/Mouth: Normal Inspection, Normal Lips, Normal Oropharynx, Normal Voice, No Airway Compromise Head: Atraumatic, Normocephalic Neck: Normal Inspection, Supple, Non-Tender Respiratory/Chest: No Respiratory Distress, Lungs Clear, Normal Breath Sounds, No Accessory Muscle Use Cardiovascular: Regular Rate, Rhythm GI/Abdominal Exam: Normal Bowel Sounds, No Distention, Tender, Other (vertical surgical wound clean, vivian still in place.) Extremities: Normal Inspection, Normal Range of Motion, Non-Tender, Pedal Edema (1+ pitting edema of both legs.) Neurological: Alert, Oriented, CN II-XII Intact, Normal Cognition, No Motor/ Sensory Deficits Psychiatric: Normal Affect, Normal Mood Skin Exam: Warm, Dry, Intact, Normal Color, No Rash Course - Vital Signs Last Recorded V/S: Last Vital Signs Temp 36.1 C 01/23/18 18:40 Pulse 88 01/23/18 20:28 Resp 16 01/23/18 18:40 BP 115/72 01/23/18 20:28 Pulse Ox 98 01/23/18 18:40 - Orders/Labs/Meds Orders: Active Orders 24 hr Category Date Time Status Abdomen Pelvis w Cont [CT] Stat Exams 01/23/18 17:38 Taken Iopamidol [Isovue-300 (61%)] Med 01/23/18 18:00 Active 150 ml IV . DIRECTED Sodium Chloride 0.9% [Normal Saline] 80 ml Med 01/23/18 18:00 Active IV ASDIRECTED Medication Orders Sodium Chloride (Normal Saline) 80 mls @ 3 mls/sec IV ASDIRECTED RAO Last Admin: 01/23/18 18:13 Dose: 3 mls/sec Iopamidol (Isovue-300 (61%)) 150 ml IV . DIRECTED RAO Last Admin: 01/23/18 18:13 Dose: 150 ml Labs: Laboratory Tests 01/23/18 01/23/18 Range/Units 17:38 17:38 WBC 9.0 (4.5-11.0) K/uL RBC 4.77 (3.30-5.50) M/uL Hgb 15.1 H D (12.0-15.0) g/dL Hct 42.8 (36.0-48.0) % MCV 90 (80-98) fL MCH 32 H (27-31) pg MCHC 35 (32-36) % Plt Count 218 (150-400) K/uL Sodium 141 (140-148) mmol/L Potassium 4.0 (3.6-5.2) mmol/L Chloride 101 (100-108) mmol/L Carbon Dioxide 23 (21-32) mmol/L Anion Gap 17.3 H (5.0-14.0) mmol/L BUN 12 (7-18) mg/dL Creatinine 0.7 (0.6-1.0) mg/dL Est Cr Clr Drug Dosing 71.36 mL/min Estimated GFR (MDRD) > 60 (>60) Glucose 51 L (74-106) mg/dL Calcium 8.5 (8.5-10.1) mg/dL Lipase 24 L (73-393) U/L Meds: Medications Generic Name Dose Route Start Last Admin Trade Name Rajiv PRN Reason Stop Dose Admin Sodium Chloride 80 mls @ 3 mls/sec 01/23/18 18:00 01/23/18 18:13 Normal Saline IV 3 mls/sec ASDIRECTED RAO Administration Iopamidol 150 ml 01/23/18 18:00 01/23/18 18:13 Isovue-300 (61%) IV 150 ml . DIRECTED ARO Administration Discontinued Medications Generic Name Dose Route Start Last Admin Trade Name Rajiv PRN Reason Stop Dose Admin Al Hydroxide/Mg Hydroxide 30 0 ml 01/23/18 19:50 ml/ Lidocaine HCl 15 ml PO 01/23/18 19:51 ONETIME ONE Lactated Ringer's 1,000 mls @ 1,000 mls/hr 01/23/18 17:37 01/23/18 17:46 Ringers, Lactated IV 01/23/18 18:36 1,000 mls/hr BOLUS ONE Administration Metoclopramide HCl 10 mg 01/23/18 17:37 01/23/18 17:55 Reglan IVPUSH 01/23/18 17:38 10 mg ONETIME ONE Administration Morphine Sulfate 4 mg 01/23/18 17:38 01/23/18 17:49 Morphine IVPUSH 01/23/18 17:39 4 mg ONETIME ONE Administration Departure - Departure Disposition: Home, Self-Care 01 Clinical Impression: Gastritis Qualifiers: Gastritis type: unspecified gastritis Chronicity: acute Gastritis bleeding: without bleeding Qualified Code(s): K29.00 - Acute gastritis without bleeding Abdominal pain Qualifiers: Abdominal location: epigastric Qualified Code(s): R10.13 - Epigastric pain - Discharge Information Referrals: PCP,None [Primary Care Provider] - Forms: ED Department Discharge Additional Instructions: The pain in the upper part of your abdomen appears to be some gastritis. This means inflammation in the stomach. You could be working on an ulcer. Take omeprazole or Prilosec 20 mg once or twice daily. You may also use an antacid such as Maalox Mylanta or Gaviscon or even Tums if you need more relief. Note that the omeprazole decreases acid production so it prevents the pain. Omeprazole does not relieve the pain immediately however. An antacid such as those described will give immediate pain relief because date neutralize the acid but they don't prevent formation of more acid. Therefore the 2 can be used together. Dr. Lucia wants you to follow-up in clinic in a few days. Return to the ER anytime <Guille Rodriguez - Last Filed: 01/23/18 20:41> Course - Radiology Interpretation Free Text/Narrative:: Abdominal CT showed some mild wall thickening of the gastric antrum possibly due to gastritis or peptic culture disease moderate mucosal thickening in the sigmoid colon and rectum clinical correlation recommended to exclude inflammatory bowel disease or infectious colitis. It's noted this lady was taking amoxicillin last week. That however is a chronic problem for her diarrhea after she eats. - Re-Assessments/Exams Free Text/Narrative Re-Assessment/Exam: 01/23/18 20:[address] were discussed with the patient. She said that the diarrhea after she eats is a chronic problem in the thing that brought her in today was the epigastric pain she said it's really severe. I did do an EKG which shows no evidence of ischemia. I gave her a GI cocktail and that completely relieved her pain. Discussed with Dr. Gordon Lucia. He agrees with starting her on a PPI and an acid Departure - Departure Time of Disposition: 20:37 Condition: Fair
[2018-01-23] MEDS ORDERED: Sodium Chloride 0.9% 80 ML IV SCH (18:00)
[2018-01-23] MEDS ORDERED: Iopamidol 612 MG/ML 150 ML Bottle IV SCH (18:00)
[2018-01-23] MEDS ORDERED: Alum Hydrox/Mag Hydrox/Simeth 30 ML, Lidocaine 2% 15 ML PO ONE ×2 (19:50)
[2018-01-23 20:29] VITALS: BP 115/72
== END 2018-01-23 20:50 | disposition home or self-care (01) ==
LOC: JP.ED 16:25
DX: K29.00 Acute gastritis without bleeding (principal); I10 Essential (primary) hypertension; E03.9 Hypothyroidism, unspecified; Z91.048 Other nonmedicinal substance allergy status; Z88.8 Allergy status to other drugs, medicaments and biological substances; Z79.899 Other long term (current) drug therapy; Z79.4 Long term (current) use of insulin; Z87.891 Personal history of nicotine dependence
CPT/HCPCS: 36415; 74177; 80048; 83690; 85027; 96361; 96374; 96375; 99284; J2270; J2765; J7030; J7120

== ENCOUNTER 2018-01-28 21:55 | Inpatient (IN) | payer MEDICAID ==
[2018-01-28] MEDS ORDERED: HYDROmorphone/Normal Saline 15 MG/30 ML PCA IV PRN (22:05)
[2018-01-28] MEDS ORDERED: Naloxone 0.4 MG/ML SDV IVPUSH PRN (22:05)
[2018-01-28] MEDS ORDERED: Ondansetron 4 MG/2 ML SDV IVPUSH PRN (22:15)
[2018-01-28] MEDS: Pantoprazole 40 MG Vial IVPUSH SCH (23:28)
[2018-01-28] MEDS: Zonisamide 50 MG Capsule PO SCH (23:37)
[2018-01-28] MEDS: Dextrose 5%-Lactated Ringers 1,000 ML IV SCH (23:38)
[2018-01-28] MEDS: Zolpidem 5 MG Tab PO SCH (23:41)
[2018-01-29] MEDS: Dextrose 5%-Lactated Ringers 1,000 ML IV SCH ×3 (05:57→22:05)
[2018-01-29] MEDS ORDERED: Scopolamine 1.5 MG Transdermal Patch TRDERM PRN (07:24)
[2018-01-29] MEDS: Levothyroxine 75 MCG Tab PO SCH (08:52)
[2018-01-29] MEDS: Chlorthalidone 25 MG Tab PO SCH (08:52)
[2018-01-29] MEDS: Lactobacillus Rhamnosus GG (Probiotic) Cap PO SCH ×2 (08:52→22:09)
[2018-01-29] MEDS: Metoclopramide 10 MG/2 ML SDV IVPUSH SCH ×3 (08:52→20:29)
[2018-01-29] MEDS: DULoxetine 30 MG Cap PO SCH ×2 (08:53→22:11)
[2018-01-29] MEDS: SCOPOLAMINE PATCH CHECK TOP SCH (08:53)
[2018-01-29] MEDS: Pregabalin 100 MG Cap PO SCH ×3 (08:53→22:09)
[2018-01-29] MEDS: Pantoprazole 40 MG Vial IVPUSH SCH (08:54)
[2018-01-29] MEDS: Zonisamide 50 MG Capsule PO SCH ×2 (08:54→22:10)
[2018-01-29] MEDS ORDERED: MVI, Adult with Vitamin K 10 ML, Thiamine 100 MG, Magnesium Sulfate 2 GM, Folic Acid 1 ... IV ONE ×5 (10:00)
[2018-01-29] MEDS: Magnesium Sulfate/Water 2 GM in Premix Bag 1 BAG IV SCH ×3 (10:17→22:05)
--- NOTE | 2018-01-29 11:37 | PN ---
DATE OF SERVICE: 01/29/2018 SUBJECTIVE: Dary had her IV fluids yesterday and then did have her fluids yesterday, and a CT scan which was negative. She needed to drive her car back to [place] and her daughter drove her back. She was admitted around 10:15 a.m. She continues to report abdominal pain from the midepigastric area down to her umbilicus and radiates across her lower abdomen, 06/02, has had no diarrhea. No dry heaving. Reports nausea. She was given Zofran once at 3:00 a.m. Vital signs have been stable. Oral intake, she has been not measuring her urine it out. Oral intake was 200 mL with late admission. She was admitted and then did go to sleep. 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 REVIEW OF SYSTEMS: HEENT: Negative. NECK: Negative. CHEST: Negative. LUNGS: No cough. ABDOMEN: As above. GENITOURINARY: Negative for UTI signs and symptoms. EXTREMITIES: Positive for joint pain. NEUROLOGIC: Negative. PSYCHIATRIC: Severe depression, chronic, sees therapist weekly. SKIN: Without rash. Remainder of review of systems negative for any pertinent positives and negatives. OBJECTIVE: GENERAL: Dary is a 47-year-old female lying in bed with blankets up almost over her head. VITAL SIGNS: TPR is 96.1, 75, 16; blood pressure 105/69. HEENT: Negative. NECK: Supple. HEART: Regular rate and rhythm. LUNGS: Clear. ABDOMEN: Extremely sensitive to light touch in all 4 quadrants. A well-healed mid abdominal incision. EXTREMITIES: Revealed trace peripheral edema. NEUROLOGIC: Intact mood and affect flat, tears up easily. SKIN: Without rash. ASSESSMENT: 1. Nausea, vomiting, dehydration. 2. Status post laparotomy for partial small bowel obstruction. 3. Status post diagnostic laparoscopy converted to laparotomy with revision of jejunostomy component of the Anthony-en-Y gastric bypass surgery, right colectomy, and placement of Interceed mesh to limit recurrent adhesion formation between the pelvis and abdominal wall underlining viscera for extensive intraabdominal adhesions, partial small bowel obstruction secondary to recurrent intussusception at the jejunojejunostomy and focal ischemia of cecum on 01/16/2018. PLAN: 1. Dietary consult to strict intake and output, then discontinue [employer]ARDS INSPECTOR. 2. Check TSH on blood already drawn. 3. Colace 100 mg b.i.d. 4. To check C. diff on next stool. 5. Communication order for 3 med cups every hour to record at bedside. 6. We will evaluate p.r.n. or in a.m. Mely Moore PA-C /[id number]
--- NOTE | 2018-01-29 16:10 | PCM.HP ---
H&P History of Present Illness - General Date of Service: 01/28/18 Admit Problem/Dx: Admission Diagnosis/Problem Admission Diagnosis/Problem Dehydration Nausea, Vomiting and Diarrhea Source of Information: Patient - History of Present Illness Initial Comments - Free Text/Narative: Abdominal pain with eating and is out of pain meds. Constant pain mid epigastric area from the mid area radiating down to her lower abdomen. Pain is severe 10/10 after eating. States that she is nauseated, dry heaves and diarrhea. Has up to 5 - 6 incontinent loose stools a day. States she will get up in the middle of the night and have a BM. Had a Diagnostic Lap converted to laparotomy with: Revision of Jejunojejunostomy component of Toux-en-Y gastric Bypass Right colectomy Placement of interceed mesh to limit recurrent adhesion formation between the pelvis and abdominal wall and underlying viscera - 01/16/2018 Pathology Report showed Focal Active colitis. Crying and upset wants her RNY Surgery Reversed. Quality: Reports: Burning, Pressure, Stabbing Severity: Severe Improves with: Reports: None Worsens with: Reports: None Context: Reports: Sick Contact Associated Symptoms: Reports: Nausea/Vomiting Middle Abdomen Pain Score (Numeric/FACES): 4 - Related Data Allergies/Adverse Reactions: Allergies Allergy/AdvReac Type Severity Reaction Status Date / Time cat dander Allergy Cannot Verified 01/23/18 17:29 Remember dog dander Allergy Cannot Verified 01/23/18 17:29 Remember mold Allergy Cannot Verified 01/23/18 17:29 Remember quetiapine Allergy Swelling Verified 01/23/18 17:29 trichophyton Allergy Cannot Uncoded 01/06/18 10:55 Remember Home Medications: Home Meds Chlorthalidone 50 mg PO DAILY 01/17/17 [History] Levothyroxine Sodium [Synthroid] 75 mcg PO DAILY 01/17/17 [History] Loperamide [Imodium] 2 mg PO QID PRN 01/17/17 [History] Multivit with Min #53/FA/K/Q10 [Dekas Plus Softgel] 1 tab PO DAILY 01/17/17 [ History] Ondansetron [Zofran ODT] 4 mg PO Q4HR PRN 01/17/17 [History] Pregabalin [Lyrica] 100 mg PO TID 01/17/17 [History] DULoxetine HCl [Cymbalta] 90 mg PO ASDIRECTED 01/19/17 [History] B Complex With Vitamin C [B-Complex Plus Vitamin C] 1 each PO DAILY 07/12/17 [ History] Cholecalciferol (Vitamin D3) [Vitamin D3] 5,000 unit PO BID 07/12/17 [History] Cyanocobalamin (Vitamin B-12) [Vitamin B-12] 1,000 mcg SL DAILY 07/12/17 [ History] Docusate Sodium [Colace] 100 mg pe PO ASDIRECTED PRN 10/31/17 [History] Lactobacillus Acidophilus [Acidophilus] 2 cap PO BID 10/31/17 [History] Zolpidem Tartrate [Ambien] 5 mg PO BEDTIME PRN 10/31/17 [History] LORazepam [Ativan] 0.5 mg PO DAILY PRN 01/06/18 [History] risperiDONE [Risperdal] 1 mg PO BEDTIME 01/06/18 [History] Acetaminophen/HYDROcodone [[place] 325-5 MG] 1 - 2 tab PO Q4H PRN #50 tab [Rx] Inulin [Fiber Choice] 3 gm PO BID #120 tab.chew 01/19/18 [Rx] Magnesium Oxide [Magnesium] 400 mg PO DAILY #90 tablet 01/19/18 [Rx] Potassium Chloride 20 meq PO DAILY #90 tablet.er 01/19/18 [Rx] Past Medical History HEENT History: Reports: Impaired Vision Other HEENT History: wears glasses Cardiovascular History: Reports: Hypertension Respiratory History: Reports: Sleep Apnea Other Respiratory History: has not been using any cpap post op Gastrointestinal History: Reports: Bowel Obstruction, Cholelithiasis, Chronic Constipation, Chronic Diarrhea, Colon Polyp, GERD, Irritable Bowel Syndrome, Pancreatitis Genitourinary History: Reports: Renal Calculus, Other (See Below) Other Genitourinary History: urea plasma CENTRAL SUPPLY ASSISTANT History: Reports: Dysfunctional Uterine Bleeding, Musculoskeletal History: Reports: Arthritis, Fibromyalgia, Osteoarthritis Neurological History: Reports: Headaches, Chronic, Migraines Psychiatric History: Reports: Anxiety, Depression, OCD, Panic Attack, PTSD Endocrine/Metabolic History: Reports: Hypothyroidism, Obesity/BMI 30+ Hematologic History: Reports: B12 Deficiency - Infectious Disease History Infectious Disease History: Reports: Chicken Pox, Shingles - Past Surgical History HEENT Surgical History: Reports: None Cardiovascular Surgical History: Reports: None Respiratory Surgical History: Reports: None GI Surgical History: Reports: Bariatric Procedure, Cholecystectomy, Colon, Colonoscopy, EGD, Esophageal Dilatation, Polypectomy, Small Bowel Female Surgical History: Reports: Section, Hysterectomy Endocrine Surgical History: Reports: None Neurological Surgical History: Reports: None Musculoskeletal Surgical History: Reports: Carpal Tunnel Dermatological Surgical History: Reports: None Social & Family History - Family History Family Medical History: Noncontributory - Tobacco Use Smoking Status *Q: Former Smoker Used Tobacco, but Quit: Yes Month/Year Tobacco Last Used: 07/2016 Second Hand Smoke Exposure: Yes - Caffeine Use Caffeine Use: Reports: None - Recreational Drug Use Recreational Drug Use: No H&P Review of Systems - Review of Systems: Review Of Systems: See Below General: Reports: Malaise, Weakness, Fatigue, Weight Loss HEENT: Reports: No Symptoms Pulmonary: Reports: No Symptoms Cardiovascular: Reports: No Symptoms Gastrointestinal: Reports: Abdominal Pain, Diarrhea, Flatus Genitourinary: Reports: No Symptoms Musculoskeletal: Reports: Joint Pain Skin: Reports: No Symptoms Psychiatric: Reports: Depression Neurological: Reports: No Symptoms Hematologic/Lymphatic: Reports: No Symptoms Immunologic: Reports: No Symptoms Exam - Exam Exam: See Below - Vital Signs Vital Signs: Last Vital Signs Temp 96.5 F 01/29/18 15:11 Pulse 61 01/29/18 15:11 Resp 16 01/29/18 15:11 BP 108/61 01/29/18 15:11 Pulse Ox 96 01/29/18 15:11 Weight: 200 lb 6.403 oz - Exam General: Alert, Oriented, Cooperative HEENT: PERRLA Neck: Supple, Trachea Midline Lungs: Clear to Auscultation, Normal Respiratory Effort Cardiovascular: Regular Rate, Regular Rhythm GI/Abdominal Exam: Normal Bowel Sounds, Non-Tender (Female) Exam: Deferred Rectal (Female) Exam: Deferred Back Exam: Normal Inspection, Full Range of Motion Extremities: Normal Inspection, Normal Range of Motion Skin: Warm, Dry, Intact Neurological: Cranial Nerves Intact, Reflexes Equal Bilateral Neuro Extensive - Mental Status: Oriented x3 Neuro Extensive - Motor, Sensory, Reflexes: CN II-XII Intact, Normal Gait, Normal Reflexes Psychiatric: Depressed - Patient Data Lab Results Last 24 hrs: Laboratory Results - last 24 hr 01/29/18 Range/Units 07:21 TSH, Ultra Sensitive 6.834 H (0.358-3.740) uIU/mL Problem List Initiated/Reviewed/Updated: Yes Orders Last 24hrs: Active Orders 24 hr Category Date Time Status Patient Status [ADT] Routine ADT 01/28/18 21:55 Active Communication Order [RC] ASDIRECTED Care 01/29/18 07:23 Active Intake and Output Strict [RC] QSHIFT Care 01/29/18 07:27 Active Intake and Output [RC] QSHIFT Care 01/28/18 22:02 Active Oxygen Therapy [RC] PRN Care 01/28/18 22:00 Active Up ad Nicky [RC] ASDIRECTED Care 01/28/18 22:00 Active VTE/DVT Education [RC] Per Unit Routine Care 01/28/18 22:00 Active Vital Signs [RC] Q4H Care 01/28/18 22:00 Active Consult to Gas Station Cashier [CONS] Routine Cons 01/29/18 07:25 Active Bariatric Diet [DIET] Diet 01/29/18 Breakfast Active CLOSTRIDIUM DIFFICILE BY PCR [RM] Routine Lab 01/29/18 12:27 Ordered Acetaminophen [Tylenol] Med 01/28/18 22:00 Active 650 mg PO Q4H PRN Chlorthalidone Med 01/29/18 09:00 Active 25 mg PO DAILY DULoxetine [Cymbalta] Med 01/29/18 21:00 Active 30 mg PO BEDTIME DULoxetine [Cymbalta] Med 01/29/18 09:00 Active 60 mg PO DAILY Dextrose 5%-Lactated Ringers 1,000 ml Med 01/28/18 22:15 Active IV ASDIRECTED Lactobacillus Rhamnosus GG [Culturelle] Med 01/29/18 09:00 Active 2 cap PO BID Levothyroxine Med 01/29/18 07:30 Active 75 mcg PO ACBREAKFAST Magnesium Sulfate/Water [Magnesium Sulfate 2 GM in Med 01/29/18 10:00 Active Water 50 ML] 2 gm Premix Bag 1 bag IV Q6H Metoclopramide [Reglan] Med 01/29/18 08:00 Active 10 mg IVPUSH Q6H Non-Formulary Medication [NF Drug] Med 01/29/18 09:00 Active 1 each TOP DAILY Ondansetron [Zofran] Med 01/28/18 22:15 Active 4 mg IVPUSH Q4H PRN Pantoprazole [ProTONIX IV] Med 01/28/18 22:15 Active 40 mg IVPUSH DAILY Pregabalin [Lyrica] Med 01/29/18 09:00 Active 100 mg PO TID Scopolamine [Transderm-Scop] Med 01/29/18 07:24 Active 1.5 mg TRDERM Q72H PRN Zolpidem [Ambien] Med 01/28/18 22:12 Active 5 mg PO BEDTIME Zonisamide Med 01/28/18 22:45 Active 100 mg PO BID Sequential Compression Device [OM.PC] Per Unit Routine Oth 01/28/18 22:03 Ordered Resuscitation Status Routine Resus Stat 01/28/18 22:00 Ordered Medication Orders Acetaminophen (Tylenol) 650 mg PO Q4H PRN PRN Reason: Pain (Mild 1-3)/fever Chlorthalidone (Chlorthalidone) 25 mg PO DAILY [facility] Last Admin: 01/29/18 08:52 Dose: 25 mg Duloxetine HCl (Cymbalta) 60 mg PO DAILY [facility] Last Admin: 01/29/18 08:53 Dose: 60 mg Duloxetine HCl (Cymbalta) 30 mg PO BEDTIME [facility] Dextrose/Lactated Ringer's (Dextrose 5%-Lactated Ringers) 1,000 mls @ 150 mls/ hr IV ASDIRECTED [facility] Last Admin: 01/29/18 15:20 Dose: 150 mls/hr Infusion: 01/29/18 12:38 Dose: 150 mls/hr Admin: 01/29/18 05:57 Dose: 150 mls/hr Infusion: 01/29/18 05:57 Dose: 150 mls/hr Admin: 01/28/18 23:38 Dose: 150 mls/hr Magnesium Sulfate 2 gm/ Premix 50 mls @ 25 mls/hr IV Q6H [facility] Stop: 02/01/18 05:59 Last Admin: 01/29/18 15:10 Dose: 25 mls/hr Infusion: 01/29/18 12:17 Dose: 25 mls/hr Admin: 01/29/18 10:17 Dose: 25 mls/hr Lactobacillus Rhamnosus (Culturelle) 2 cap PO BID [facility] Last Admin: 01/29/18 08:52 Dose: 2 cap Levothyroxine Sodium (Levothyroxine) 75 mcg PO ACBREAKFAST [facility] Last Admin: 01/29/18 08:52 Dose: 75 mcg Metoclopramide HCl (Reglan) 10 mg IVPUSH Q6H [facility] Last Admin: 01/29/18 13:43 Dose: 10 mg Admin: 01/29/18 08:52 Dose: 10 mg Scopolamine Patch (Check) 1 each TOP DAILY [facility] Last Admin: 01/29/18 08:53 Dose: 1 each Ondansetron HCl (Zofran) 4 mg IVPUSH Q4H PRN PRN Reason: Nausea/Vomiting Last Admin: 01/29/18 03:01 Dose: 4 mg Pantoprazole Sodium (Protonix Iv) 40 mg IVPUSH DAILY [facility] Last Admin: 01/29/18 08:54 Dose: 40 mg Admin: 01/28/18 23:28 Dose: 40 mg Pregabalin (Lyrica) 100 mg PO TID [facility] Last Admin: 01/29/18 13:43 Dose: 100 mg Admin: 01/29/18 08:53 Dose: 100 mg Scopolamine (Transderm-Scop) 1.5 mg TRDERM Q72H PRN PRN Reason: Nausea Last Admin: 01/29/18 08:53 Dose: 1.5 mg Zolpidem Tartrate (Ambien) 5 mg PO BEDTIME [facility] Last Admin: 01/28/18 23:41 Dose: 5 mg Zonisamide (Zonisamide) 100 mg PO BID [facility] Last Admin: 01/29/18 08:54 Dose: 100 mg Admin: 01/28/18 23:37 Dose: Not Given Assessment/Plan Comment:: Plan: Admit to Inpatient See Copy of orders in EMR Mely Lazar
[2018-01-29] MEDS: Zolpidem 5 MG Tab PO SCH (22:09)
[2018-01-30] MEDS: Metoclopramide 10 MG/2 ML SDV IVPUSH SCH ×4 (03:08→19:26)
[2018-01-30] MEDS: Magnesium Sulfate/Water 2 GM in Premix Bag 1 BAG IV SCH ×4 (03:08→21:44)
[2018-01-30] MEDS: Dextrose 5%-Lactated Ringers 1,000 ML IV SCH ×3 (04:41→19:56)
[2018-01-30] MEDS: Levothyroxine 75 MCG Tab PO SCH (08:10)
[2018-01-30] MEDS: SCOPOLAMINE PATCH CHECK TOP SCH (08:14)
[2018-01-30] MEDS: Lactobacillus Rhamnosus GG (Probiotic) Cap PO SCH ×2 (08:15→21:43)
[2018-01-30] MEDS: DULoxetine 30 MG Cap PO SCH ×2 (08:16→21:43)
[2018-01-30] MEDS: Chlorthalidone 25 MG Tab PO SCH (08:17)
[2018-01-30] MEDS: Pantoprazole 40 MG Vial IVPUSH SCH (08:17)
[2018-01-30] MEDS: Pregabalin 100 MG Cap PO SCH ×3 (08:23→21:43)
[2018-01-30] MEDS: Zonisamide 50 MG Capsule PO SCH (08:30)
--- NOTE | 2018-01-30 09:08 | PN ---
DATE OF SERVICE: 01/30/2018 SUBJECTIVE: Dary states she is feeling better. She has no abdominal pain. Has had 1 bowel movement. Oral intake 960. Urine output 1600. Vital signs have been stable. REVIEW OF SYSTEMS: HEENT: Negative. NECK: Negative. CHEST: No chest pain, shortness of breath. LUNGS: No cough. ABDOMEN: As above. EXTREMITIES: Some joint pain, which is normal for her and also some lower back pain. SKIN: Without rash. NEURO: Intact. PSYCHIATRIC: She states she is feeling better. Less emotional and depressed. Remainder of review of systems negative for any pertinent positives and negatives. OBJECTIVE: GENERAL: Dary Gallegos is a 47-year-old female, alert and orientated, looks much better. VITAL SIGNS: TPR 96.1, 97, 16, blood pressure 110/72. HEENT: Negative. NECK: Supple. HEART: Regular rate and rhythm. LUNGS: Clear. ABDOMEN: Soft and nontender. EXTREMITIES: Without peripheral edema. NEURO: Intact. Mood and affect much improved. ASSESSMENT: 1. Nausea, vomiting, dehydration, resolved. 2. Status post laparotomy for partial small bowel obstruction. 3. Status post Anthony-en-Y gastric bypass surgery unspecified surgical malabsorption and status post diagnostic laparoscopy turned to laparotomy with revision of the jejunostomy component of the Anthony-en-Y gastric bypass surgery, right colectomy, and placement of Interceed mesh to limit recurrent adhesive formation between the pelvis and abdominal wall underlying viscera and extensive intraabdominal adhesions, partial small bowel obstruction secondary to recurrent intussusception at the jejunostomy and focal ischemia of the cecum on 01/16/2018. 4. Depression. PLAN: Discharge in a.m., dietary consult, bariatric consult. Did long discussion regarding short-term disability and possibly going back to work part-time. She will discuss that with her boss, also discussion regarding her diet and avoidance of carbohydrates, good pulmonary toilet. We will evaluate p.r.n. or in a.m. Mely Moore PA-C /[id number]
[2018-01-30] MEDS: Acetaminophen 325 MG Tab PO PRN (19:25)
[2018-01-30] MEDS: Zolpidem 5 MG Tab PO SCH (21:43)
[2018-01-31] MEDS: Metoclopramide 10 MG/2 ML SDV IVPUSH SCH ×2 (02:28→07:52)
[2018-01-31] MEDS: Dextrose 5%-Lactated Ringers 1,000 ML IV SCH (02:29)
[2018-01-31] MEDS: Magnesium Sulfate/Water 2 GM in Premix Bag 1 BAG IV SCH (04:32)
[2018-01-31] MEDS ORDERED: Pantoprazole 40 MG Tab.CR PO SCH (07:30)
[2018-01-31] MEDS ORDERED: Promethazine 25 MG Tab PO PRN (07:42)
[2018-01-31 07:45] VITALS: BP 108/72
[2018-01-31] MEDS: Acetaminophen 325 MG Tab PO PRN (07:51)
[2018-01-31] MEDS: Levothyroxine 75 MCG Tab PO SCH (07:52)
[2018-01-31] MEDS: Lactobacillus Rhamnosus GG (Probiotic) Cap PO SCH (08:04)
[2018-01-31] MEDS: Chlorthalidone 25 MG Tab PO SCH (08:04)
[2018-01-31] MEDS: DULoxetine 30 MG Cap PO SCH (08:05)
[2018-01-31] MEDS: Pregabalin 100 MG Cap PO SCH (08:10)
--- NOTE | 2018-02-01 08:22 | DISCH ---
ADMISSION DIAGNOSES: 1. Dehydration, nausea, vomiting, and diarrhea. 2. Status post diagnostic lap converted to laparotomy with revision of the jejunojejunostomy component of the Anthony-en-Y gastric bypass surgery, right colectomy, and placement of Interceed mesh to limit recurrent adhesive formation between the pelvis and abdominal wall and underlying viscera. Date of surgery, 01/16/2018. 3. Exacerbation of depression. 4. History of renal calculus. 5. Fibromyalgia. 6. Osteoarthritis. 7. Headaches, chronic migraines. 8. Anxiety. 9. Depression. 10.Obsessive compulsive disorder. 11.Panic attack. 12.Posttraumatic stress disorder. 13.Hypothyroidism. DISCHARGE DIAGNOSIS: Resolution of dehydration, nausea, vomiting, and diarrhea. HISTORY: Dary Gallegos had surgery on 01/16/2018. She was discharged and continued to have persistent 5 to 6 incontinent loose stools, nauseated, dry heaves, and was not able to keep anything down, associated with weakness. She was admitted to the hospital, given adequate IV fluids. Her diet was restarted and gradually progressed. She received dietary instructions. She gradually progressed. Oral intake was adequate. She had no pain. Nausea was on and off, but did well with the scopolamine patch and Reglan. States that the Zofran really did not help. She will be discharged with one scopolamine patch to take off in 4 days, then to take Reglan very sparingly, and Phenergan to help manage the nausea. Recommend no work until her followup appointment in clinic. She was able to be discharged to home on 01/31/2018. REVIEW OF SYSTEMS: CONSTITUTIONAL: No fever, chills, night sweats, or fatigue. HEAD: No headache. NECK: No pain. HEART: No chest pain, shortness of breath, fast or irregular heartbeat. LUNGS: No cough. ABDOMEN: Denies pain. Oral intake 0. Urine output 2300. One bowel movement. No nausea, dry heaving. : Negative. EXTREMITIES: Chronic joint pain. NEURO: Negative for headache. PSYCHIATRIC: Mood and affect appropriate. Talkative and cheerful. PHYSICAL EXAMINATION: GENERAL: Dary Gallegos is a 47-year-old female. VITAL SIGNS: Height is 4 feet 11.8 inches. Weight is 200 pounds. TPR 95.9, 66, 16, and blood pressure 108/72. HEENT: Negative. NECK: Supple. HEART: Regular rate and rhythm. LUNGS: Clear. ABDOMEN: Soft and nontender. EXTREMITIES: Without peripheral edema. NEURO: Intact. PSYCHIATRIC: Mood and affect appropriate. SKIN: Without rash. DISPOSITION: Discharged to home. CONDITION: Stable and improving. FOLLOWUP APPOINTMENT: Mely Moore PA-C, on 02/12/2018 at 12:15 a.m. DISCHARGE MEDICATIONS: New Prescriptions: 1. Reglan 10 mg oral q.6 hours as needed for extreme nausea. 2. Phenergan 25 mg oral q.4 hours p.r.n., Phenergan #30. 3. She is to resume her home medications. DISCHARGE DIET: Step-4 gastric bypass diet. Drink 8 to 10 glasses of water a day. ACTIVITY: As tolerated. Shower/bathing, may shower. DISCHARGE INSTRUCTIONS: Notify provider of fever, increased pain, nausea, or vomiting. Special instruction; keep a food journal and continue with fiber wafers, take twice a day.
== END 2018-01-31 10:45 | disposition home or self-care (01) | DRG 641 ==
LOC: JP.MS 21:55
PROVIDERS: ADMIT Surgery; ATTEND Surgery
DX: E86.0 Dehydration (principal); K91.2 Postsurgical malabsorption, not elsewhere classified; I10 Essential (primary) hypertension; Z98.84 Bariatric surgery status; Z98.0 Intestinal bypass and anastomosis status; G43.909 Migraine, unspecified, not intractable, without status migrainosus; G47.30 Sleep apnea, unspecified; M19.90 Unspecified osteoarthritis, unspecified site; M79.7 Fibromyalgia; E03.9 Hypothyroidism, unspecified; F41.9 Anxiety disorder, unspecified; F32.9 Major depressive disorder, single episode, unspecified; F42.9 Obsessive-compulsive disorder, unspecified; F43.10 Post-traumatic stress disorder, unspecified; F41.0 Panic disorder [episodic paroxysmal anxiety]; E53.8 Deficiency of other specified B group vitamins; Z87.891 Personal history of nicotine dependence; H54.7 Unspecified visual loss; Z88.8 Allergy status to other drugs, medicaments and biological substances; Z91.048 Other nonmedicinal substance allergy status
CPT/HCPCS: 36415; 84443; 87493; A9270-GY; C9113; J1170; J2405; J2765; J3411; J3475; J3490; J7042; J7120

== ENCOUNTER 2018-09-26 07:38 | Inpatient (IN) | payer MEDICAID ==
[~2018-09-26 07:38] MED LIST changes: -Cyanocobalamin (Vitamin B12) 1,000 MCG/ML SDV IM ONE; -Glycopyrrolate 0.2 MG/ML 2 ML SDV IVPUSH ONE; -Lactated Ringers 1,000 ML IV SCH; +Meropenem 500 MG SDV ONE; -Midazolam 1 MG/ML 2 ML SDV ONE; -Propofol 200 MG/20 ML SDV ONE; -fentaNYL 100 MCG/2 ML SDV ONE
[2018-09-26] MEDS ORDERED: cefOXitin 2 GM in Sodium Chloride 0.9% 50 ML IV ONE (07:45)
[2018-09-26] MEDS ORDERED: Dextrose 5%-Lactated Ringers 1,000 ML IV SCH (07:45)
[2018-09-26] MEDS ORDERED: Pregabalin 100 MG Cap PO ONE (08:10)
[2018-09-26] MEDS ORDERED: Glycopyrrolate 0.2 MG/ML 5 ML MDV ONE (08:35)
[2018-09-26] MEDS ORDERED: Dexamethasone 4 MG/ML SDV ONE (08:35)
[2018-09-26] MEDS ORDERED: Succinylcholine 200 MG/10 ML MDV ONE (08:35)
[2018-09-26] MEDS ORDERED: Rocuronium 50 MG/5 ML Vial ONE (08:35)
[2018-09-26] MEDS ORDERED: Propofol 200 MG/20 ML SDV ONE (08:35)
[2018-09-26] MEDS ORDERED: Ondansetron 4 MG/2 ML SDV ONE (08:35)
[2018-09-26] MEDS ORDERED: Neostigmine Methylsulfate 1 MG/ML 5 ML Syringe ONE (08:35)
[2018-09-26] MEDS ORDERED: fentaNYL 250 MCG/5 ML SDV ONE ×2 (08:37→11:14)
[2018-09-26] MEDS ORDERED: Naloxone 0.4 MG/ML SDV IV PRN (08:41)
[2018-09-26] MEDS: HYDROmorphone/Normal Saline 15 MG/30 ML PCA IV PRN (08:57)
[2018-09-26] MEDS ORDERED: Ketamine 500 MG/5 ML MDV IV SCH (09:00)
[2018-09-26] MEDS ORDERED: Ketamine 50 MG in Sodium Chloride 0.9% 49.5 ML IV SCH (09:00)
[2018-09-26] MEDS ORDERED: Ropivacaine 34 ML, Dexamethasone 8 MG, EPINEPHrine 0.4 MG, Sodium Chloride 0.9% 43.6 ML NERVRT SCH ×4 (09:00)
[2018-09-26] MEDS: fentaNYL 25 MCG/HR Transdermal Patch TRDERM SCH (12:35)
[2018-09-26] MEDS ORDERED: Ondansetron 4 MG/2 ML SDV IVPUSH PRN (14:06)
[2018-09-26] MEDS ORDERED: Loperamide 2 MG Cap PO PRN (14:13)
[2018-09-26] MEDS ORDERED: Dicyclomine 10 MG Cap PO PRN (14:23)
[2018-09-26] MEDS: VERIFY FENT PATCH TOP SCH ×2 (14:27→21:27)
[2018-09-26] MEDS ORDERED: Meperidine PF 100 MG/ML Syringe IM ONE (14:40)
[2018-09-26] MEDS: hydrOXYzine HCl 100 MG/2 ML SDV IM PRN (14:52)
[2018-09-26] MEDS: Pantoprazole 40 MG Vial IV SCH (15:45)
[2018-09-26] MEDS: cefOXitin 2 GM in Sodium Chloride 0.9% 50 ML IV SCH ×2 (15:51→21:26)
[2018-09-26] MEDS: Dextrose 5%-Lactated Ringers 1,000 ML IV SCH (15:51)
[2018-09-26] MEDS: DULoxetine 30 MG Cap PO SCH (17:17)
[2018-09-26] MEDS: Amylase/Lipase/Protease 12,000 Unit Cap.CR PO SCH (17:17)
[2018-09-26] MEDS: Cyclobenzaprine 10 MG Tab PO PRN (21:26)
[2018-09-26] MEDS: Amitriptyline 10 MG Tab PO SCH (21:26)
[2018-09-26] MEDS: Pregabalin 100 MG Cap PO SCH (21:27)
[2018-09-26] MEDS: Zolpidem 5 MG Tab PO PRN (21:31)
[2018-09-27] MEDS: Dextrose 5%-Lactated Ringers 1,000 ML IV SCH ×3 (00:15→18:21)
[2018-09-27] MEDS: cefOXitin 2 GM in Sodium Chloride 0.9% 50 ML IV SCH ×2 (03:23→10:46)
[2018-09-27] MEDS: Cyclobenzaprine 10 MG Tab PO PRN ×3 (03:44→21:35)
[2018-09-27] MEDS: HYDROmorphone/Normal Saline 15 MG/30 ML PCA IV PRN ×2 (04:03→16:50)
[2018-09-27] MEDS: Levothyroxine 25 MCG, Levothyroxine 50 MCG PO SCH ×2 (08:18)
[2018-09-27] MEDS: hydrOXYzine HCl 100 MG/2 ML SDV IM PRN ×3 (08:19→18:27)
[2018-09-27] MEDS: VERIFY FENT PATCH TOP SCH ×2 (08:19→22:23)
[2018-09-27] MEDS: Amylase/Lipase/Protease 12,000 Unit Cap.CR PO SCH ×3 (08:19→16:26)
[2018-09-27] MEDS: Chlorthalidone 25 MG Tab PO SCH (08:19)
[2018-09-27] MEDS: Sodium Bicarbonate 650 MG Tab PO SCH (08:19)
[2018-09-27] MEDS ORDERED: Loperamide 1 MG/5 ML ML Solution 120 ML Bottle PO PRN (08:28)
[2018-09-27] MEDS: Pregabalin 100 MG Cap PO SCH ×3 (08:30→21:35)
[2018-09-27] MEDS ORDERED: Scopolamine 1.5 MG Transdermal Patch TOP SCH (09:00)
[2018-09-27] MEDS: Pantoprazole 40 MG Vial IV SCH (16:26)
[2018-09-27] MEDS: DULoxetine 30 MG Cap PO SCH (16:26)
[2018-09-27] MEDS: Amitriptyline 10 MG Tab PO SCH (21:32)
[2018-09-27] MEDS: Zolpidem 5 MG Tab PO PRN (21:35)
[2018-09-28] MEDS: Dextrose 5%-Lactated Ringers 1,000 ML IV SCH (04:08)
[2018-09-28] MEDS: Cyclobenzaprine 10 MG Tab PO PRN ×3 (04:11→20:14)
[2018-09-28] MEDS: Levothyroxine 25 MCG, Levothyroxine 50 MCG PO SCH ×2 (08:30)
[2018-09-28] MEDS: Sodium Bicarbonate 650 MG Tab PO SCH (08:30)
[2018-09-28] MEDS: Chlorthalidone 25 MG Tab PO SCH (08:30)
[2018-09-28] MEDS: Amylase/Lipase/Protease 12,000 Unit Cap.CR PO SCH ×3 (08:30→16:48)
[2018-09-28] MEDS: Pregabalin 100 MG Cap PO SCH ×3 (08:33→20:14)
[2018-09-28] MEDS: VERIFY SCOP PATCH TOP SCH (08:37)
[2018-09-28] MEDS: VERIFY FENT PATCH TOP SCH ×2 (08:37→20:08)
[2018-09-28] MEDS: hydrOXYzine HCl 100 MG/2 ML SDV IM PRN (08:41)
[2018-09-28] MEDS: HYDROmorphone 2 MG Tab PO PRN ×4 (09:36→21:27)
[2018-09-28] MEDS: Docusate Sodium 100 MG Cap PO SCH ×2 (10:39→20:09)
[2018-09-28] MEDS: Bisacodyl 5 MG Tab PO SCH ×2 (10:39→20:09)
[2018-09-28] MEDS: Magnesium Sulfate/Water 2 GM in Premix Bag 1 BAG IV SCH ×3 (10:40→21:25)
[2018-09-28] MEDS: Potassium Phosphates 20 MMOLE in Sodium Chloride 0.9% 250 ML IV SCH ×3 (10:42→20:05)
[2018-09-28] MEDS ORDERED: Sodium Ferric Gluconate Cmplex 250 MG in Sodium Chloride 0.9% 100 ML IV SCH (12:00)
[2018-09-28] MEDS ORDERED: hydrOXYzine HCl 10 MG Tab PO PRN (12:41)
[2018-09-28] MEDS ORDERED: Pantoprazole 40 MG Tab.CR PO SCH (16:00)
[2018-09-28] MEDS: hydrOXYzine HCl 25 MG Tab PO PRN ×2 (16:53→21:24)
[2018-09-28] MEDS: DULoxetine 30 MG Cap PO SCH ×2 (17:31→17:33)
[2018-09-28] MEDS: Amitriptyline 10 MG Tab PO SCH (20:10)
[2018-09-28] MEDS: Zolpidem 5 MG Tab PO PRN (21:24)
[2018-09-29] MEDS: HYDROmorphone 2 MG Tab PO PRN ×3 (01:30→10:34)
[2018-09-29] MEDS: Magnesium Sulfate/Water 2 GM in Premix Bag 1 BAG IV SCH ×2 (03:37→09:04)
[2018-09-29] MEDS: hydrOXYzine HCl 25 MG Tab PO PRN ×3 (03:37→13:14)
[2018-09-29] MEDS: Amylase/Lipase/Protease 12,000 Unit Cap.CR PO SCH ×2 (07:45→10:36)
[2018-09-29] MEDS: Levothyroxine 25 MCG, Levothyroxine 50 MCG PO SCH ×2 (07:45)
[2018-09-29] MEDS: Cyclobenzaprine 10 MG Tab PO PRN (07:56)
[2018-09-29] MEDS: Bisacodyl 5 MG Tab PO SCH (09:00)
[2018-09-29] MEDS: Chlorthalidone 25 MG Tab PO SCH (09:00)
[2018-09-29] MEDS: Sodium Bicarbonate 650 MG Tab PO SCH (09:01)
[2018-09-29] MEDS: Docusate Sodium 100 MG Cap PO SCH (09:01)
[2018-09-29] MEDS: VERIFY FENT PATCH TOP SCH (09:03)
[2018-09-29] MEDS: VERIFY SCOP PATCH TOP SCH (09:04)
[2018-09-29] MEDS: Pregabalin 100 MG Cap PO SCH ×2 (09:08→13:13)
[2018-09-29] MEDS ORDERED: Sodium Ferric Gluconate Cmplex 250 MG in Sodium Chloride 0.9% 100 ML IV SCH (10:00)
[2018-09-29 10:39] VITALS: BP 123/59
--- NOTE | 2018-09-29 11:07 | DISCH ---
ADMISSION DIAGNOSES: 1. Incisional hernia. 2. SP Anthony-en-Y gastric bypass surgery. 3. Unspecified surgical malabsorption. 4. B12 deficiency. 5. Intractable epigastric abdominal pain. 6. Diarrhea. 7. Chronic pain syndrome. 8. Fibromyalgia. 9. Severe depression. 10.SP percutaneous endoscopic gastrostomy (PEG tube placement). DISCHARGE DIAGNOSES: Exploratory laparotomy with lysis of adhesions, repair of recurrent incisional hernia with mesh, and placement of Vicryl mesh for incarcerated incisional hernia with extensive intraabdominal adhesions. Date of surgery: 09/26/2018. HISTORY: Dary Gallegos is a 48-year-old female with ventral incisional hernia. After preoperative evaluation and discussion of possible risks and possible complications, she wished to proceed with surgical procedure. HOSPITAL COURSE: Dary had her surgery on 09/26/2018. She had no operative complications. On postoperative day #1, her usual medications were restarted, IV was decreased to 100 mL per hour, and she had a scopolamine patch placed for nausea. On 09/28/2018, her SKIP PITMAN was discontinued. She was started on her Dilaudid, given Colace, Dulcolax tablets, K-Phos replaced, magnesium was replaced, and she had ferric gluconate 250 mg IV on 09/28/2018 and 09/29/2018. On 09/29/2018, she was able to be discharged to home. PHYSICAL EXAMINATION: GENERAL: Dary Gallegos is a 48-year-old female. VITAL SIGNS: Height is 5 feet 1 inch, weight is 161 pounds. TPR is 98.4, 80, 16, blood pressure 116/63. HEENT: Negative. NECK: Supple. HEART: Regular rate and rhythm. LUNGS: Clear. ABDOMEN: Aquacel dressing is on, will be removed prior to discharge. Abdominal binder is on. EXTREMITIES: Without peripheral edema. DISPOSITION: Discharged to home. CONDITION: Stable and improving. FOLLOWUP: Followup appointment on 10/09/2018 at 10:30 a.m. with Mely Moore PA-C. HOME MEDICATIONS: 1. She is to restart Elavil 20 mg oral at bedtime. 2. B complex 1 tablet oral daily. 3. Chlorthalidone 25 mg oral daily. 4. Vitamin D3 three tablets oral daily. 5. Creon 24,000 - 76,000 one tablet before meals and bedtime. 6. Vitamin B12 1000 mcg sublingual. 7. Cymbalta 30 mg oral at bedtime. 8. Cymbalta 60 mg oral in the morning. 9. Bentyl 10 mg oral every 6 hours p.r.n. abdominal pain and bloating. 10.Folic acid 1 mg oral daily. 11.Dilaudid 4 mg every 6 hours p.r.n. pain. 12.Synthroid 75 mcg oral daily. 13.Imodium 2 mg oral 4 times a day p.r.n. diarrhea. 14.Mag-Oxide 400 mg oral daily. 15.Zofran 4 mg every 4 hours p.r.n. nausea. 16.Lyrica 100 mg oral 3 times a day. 17.Sodium bicarbonate 325 mg oral daily. 18.Ambien 5 mg oral at bedtime p.r.n. sleep. 19.Duragesic patch 25 mcg one patch every 72 hours. DIET: Usual diet as tolerated. Drink 8 to 10 glasses of water a day. Continue G-tube feeding as she did before surgery. ACTIVITY: No lifting greater than 10 pounds for 6 weeks. Walk at least 6 times daily inside your home. Driving: Do not drive for 2 weeks and while on pain medication. Shower/bathing, may shower. DISCHARGE INSTRUCTIONS: Notify provider if any fever, increased pain, swelling, redness, drainage, nausea, or vomiting. Keep site clean and dry. Wear abdominal binder for 6 weeks and then as tolerated. SPECIAL INSTRUCTIONS: Use incentive spirometer 10 times every hour while awake.
[2018-09-29] MEDS: fentaNYL 25 MCG/HR Transdermal Patch TRDERM SCH (12:15)
--- NOTE | 2018-10-03 11:09 | PN ---
DATE OF SERVICE: 09/28/2018 The patient has been afebrile with stable vital signs. She has been up and moving and tolerating well oral intake and tube feedings well tolerated. We will begin some bowel stimulation today. Potassium and phosphate are both low as is magnesium, those will be supplemented, and her iron levels are also quite low. We will give her 2 doses of ferrous gluconate over the next 2 days. She will be switching to oral pain medicine today and may be ready for discharge home tomorrow. Gordon Lucia MD /[id number]
--- NOTE | 2018-10-03 13:14 | PN ---
DATE OF SERVICE: 09/27/2018 The patient has been afebrile with stable vital signs. She is moving quite well. She is complaining of pain, but pain control grossly appears to be adequate slowly with the regimen on board for today, switching over to oral medications for tomorrow, replacing the ASSISTANT SUPERINTENDENT FOR CURRICUL[employer]. Otherwise, we will restart her tube feedings tonight. She will add a scopolamine patch, which she normally wears, and we are switching over to oral pain medicines, probably be able to make it home on Saturday. Gordon Lucia MD /[id number]
--- NOTE | 2018-10-06 15:15 | OR ---
DATE OF PROCEDURE: 09/26/2018 PREOPERATIVE DIAGNOSIS: Incisional hernia. POSTOPERATIVE DIAGNOSES: 1. Incarcerated incisional hernia. 2. Extensive intraabdominal adhesions. OPERATIVE PROCEDURES: Exploratory laparotomy with lysis of adhesions and: 1. Repair of incarcerated incisional hernia with mesh (99382, [id number]). 2. Placement of Vicryl mesh across pelvic and abdominal cervantes to limit recurrent adhesion formation (08184). ANESTHESIA: General. PUNCH PRESS OPERATOR: Mely Moore PA-C and ISELA Espinoza3. INDICATIONS FOR PROCEDURE: This is a 48-year-old presenting with increasingly symptomatic incisional hernia located in the upper abdomen. Plan is to proceed with an open repair of this given her extensive previous abdominal surgeries as well as quite wide fascial defect with the patient to be benefitted by a formal fascial closure over the mesh to improve overall abdominal wall stability and function. Potential risks of the procedure including bleeding, infection, injury to underlying viscera, problems with the hernia recurring, mesh becoming infected, as well as remote possibility of cardiopulmonary, septic, or hemorrhagic complications leading to were all discussed, and the patient wishes to proceed. DETAILS OF PROCEDURE: The patient was taken to the operating room, placed in a supine position. After general endotracheal anesthesia was induced, the Mckeon catheter was inserted. Using ultrasound guidance, bilateral transversus abdominis plane blocks covering the upper and mid abdomen were then placed. The previous upper midline incision was reused, a small area of skin was excised to facilitate a more satisfactory skin closure, and this then continued down to the level of the area of the hernia. Hernia sac was dissected down to the level of fascia more or less circumferentially. It was then opened and was noted to have some incarcerated omentum attached within the hernia sac. This was dissected free and the omentum returned back into the peritoneal cavity. The hernia sac was then excised flush with the fascial edge. The patient had underlying this quite extensive adhesions, which were then taken down circumferentially to the point that would allow placement of the mesh. At this point, with resection having been completed satisfactorily, the hernia site was mapped out. A Ventrio ST hernia patch measuring 13.8 x 17.8 cm was selected with the mesh to be placed with long axis in the vertical midline roughly 5 cm intervals around its circumference, 2-0 Vicryl sutures were placed on the polypropylene side of the mesh and the mesh was then placed in antibiotic-containing saline solution. Small stab wounds were placed in the abdominal wall where the areas had been marked out where the sutures would be pulled up to fix the mesh in position well away from the fascial edge. The upper half of these sutures then pulled through the abdominal wall and the mesh extent then pulled up snuggly against the abdominal wall. The patient was felt to be high risk for significant recurrent adhesion formation. Given this, a Vicryl mesh was then placed beginning behind the area of bladder along the pelvic sidewalls and up against the abdominal wall including underlying the mesh. The remainder of the Ventrio ST mesh sutures were then pulled through the abdominal wall, thus fixing the mesh in position. These were then tied. Titanium tacking screws were then placed under the shelf of the mesh circumferentially to further fix it in position. At that point, the area was irrigated with antibiotic-containing saline solution. The midline fascia was then approximated with a #2 Vicryl stitch, the subcutaneous tissue was then approximated with 2 layers of 3-0 and 4-0 Vicryl stitch deep, and vivian for the skin. Dressing was applied. The patient was taken to the recovery room in satisfactory condition. Physician purchasing administrative assistant, Mely Moore, played an essential role in assisting in this case, helping to position the patient, retract structures as needed, as well as suturing and stapling when indicated. Her presence improved the patient's safety and decreased the operative time. Gordon Lucia MD /[id number]
== END 2018-09-29 14:06 | disposition home or self-care (01) | DRG 336 ==
LOC: JP.SDSSCHI 07:38 → JP.SDS 07:39 → EDSTATUS 08:45 → JP.2SS 12:20
PROVIDERS: ADMIT Surgery; ATTEND Surgery
PROC: 0WUF0JZ Supplement Abdominal Wall with Synthetic Substitute, Open Approach (ICD-10-PCS; principal; 2018-09-26)
PROC: 0DNW0ZZ Release Peritoneum, Open Approach (ICD-10-PCS; 2018-09-26)
PROC: 3E0T3BZ Introduction of Anesthetic Agent into Peripheral Nerves and Plexi, Percutaneous Approach (ICD-10-PCS; 2018-09-26)
PROC: 3E0M05Z Introduction of Adhesion Barrier into Peritoneal Cavity, Open Approach (ICD-10-PCS; 2018-09-26)
DX: K43.2 Incisional hernia without obstruction or gangrene (principal); K91.2 Postsurgical malabsorption, not elsewhere classified; F32.2 Major depressive disorder, single episode, severe without psychotic features; K66.0 Peritoneal adhesions (postprocedural) (postinfection); E53.8 Deficiency of other specified B group vitamins; R10.13 Epigastric pain; R19.7 Diarrhea, unspecified; G89.4 Chronic pain syndrome; Z93.1 Gastrostomy status; M79.7 Fibromyalgia; Z98.84 Bariatric surgery status; Z98.0 Intestinal bypass and anastomosis status
CPT/HCPCS: 36415; 80048; 80053; 83550; 83735; 84100; 85025; 85027; 88302; 94762; A9270-GY; C1781; C9113; J0171; J0330; J0694; J1100; J1170; J2020; J2175; J2185; J2405; J2704; J2710; J2795; J2916; J3010; J3410; J3475; J3490; J7030; J7042; J7050